=== PATIENT | male | born 1950 | race Caucasian/White ===

== ENCOUNTER 2023-10-27 04:34 | Inpatient (IN) | payer MEDICARE, BC, SELFPAY ==
[2023-10-27] VITALS (14 sets, daily range): BP systolic 111–144; BP diastolic 66–81; BMI 24.3; BMI 23.9
--- NOTE | 2023-10-27 02:52 | ED.GENMED ---
History of Present Illness
General
Chief Complaint: Back Pain
Source: patient and ambulance crew
Time Seen by Provider: 10/27/23 02:51
Travel History
Have you had any contact with someone who has COVID-19?: No
Do you have any symptoms of coronavirus? Fever > 100 degrees, chills, cough, shortness of breath, sore throat, loss of taste or smell, muscle aches, or headache?: No
History of Present Illness
History of Present Illness:
73-year-old male brought in by EMS for back pain that began around 9 PM. Patient states that the pain was severe and started to vomit. He took 324 mg of aspirin and called 911. Patient has a history of chronic back pain but states that this is
different. Patient has had strokes and is on Eliquis. He took a dose this morning but missed this evening's dose. He states that he occasionally misses but has not missed a dose in a while.
Past History
Past History
ED Past Medical History: Arrthythmia (Atrial fibrillation), CVA, GERD, HTN, Hypercholesterolemia and Other (Obstructive sleep apnea, glaucoma, prostate cancer)
ED Past Surgical History: None, Urological (Prostatectomy October 2013) and Other (Cataract removal with lens implant 2019)
Social History
Tobacco: Non-smoker
Alcohol: None
Drug: None
Personal:
Living: with family
Employment: Retired
Family History
Family History: Other
Review of Systems
Review of Systems
Allergies reviewed?: Yes
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
All Other Systems: ROS reviewed and negative except as documented in HPI and ROS
Constitutional: Reports fatigue
Respiratory: Reports no symptoms; Denies cough or trouble breathing
Cardiac: Reports diaphoresis; Denies chest pain
Musculoskeletal: Reports back pain (Between shoulder blades)
Skin: Reports no symptoms
Neurological: Reports no symptoms
Endocrine: Reports no symptoms
Hematologic/Lymphatic: Reports no symptoms
Psychiatric: Reports no symptoms
Phy Exam
General Physical Exam
General Presentation: moderate distress
General Skin: warm and dry
General Habitus: normal
General Mental: anxious and verbally abusive
General Hydration: appears well hydrated
ENT Exam
ENT Exam: EOMI, pharynx normal, neck supple and normocephalic
Eye Exam
Eye Exam: PERRL, cornea clear and conjunctiva normal
Cardiovascular Exam
Cardiovascular Exam: regular rate/rhythm, no edema, no murmur and normal peripheral pulses
Pulmonary Exam
Pulmonary Exam: lungs clear, no respiratory distress, no rales, no crackles, no rhonchi, no stridor, no wheezing and no cough
Gastrointestinal Exam
Gastrointestinal Exam: normal bowel sounds, non tender, soft, no organomegaly, no pulsatile mass and non distended
Neurological Exam
Neurological Exam: alert, oriented x3, no motor deficits and speech normal
Musculoskeletal Exam
Musculoskeletal Exam: full ROM and no edema
Skin Exam
Skin Exam: normal color, warm/dry, no rash and no petechia
Psychiatric Exam
Psychiatric Exam: normal mood/affect
Course
Orders/Labs/Results
Orders:
Orders
10/27/23 02:43
EKG [Electrocardiogram (*1)] Urgent
Reason for Study: Chest Pain
EKG- Treatment ONCE
CR Chest Portable - 1 View Urgent
Comment:
Reason For Exam: chest pain
Reason Study Needs to be Portable: Unable to Transport
10/27/23 02:44
Cardiac Monitoring- Treatment ONCE
IV Insert/Care/Rem.- Treatment PRN
O2 Therapy [RESP] Urgent
Titrate/Wean O2 to maintain O2 sat greater than (%): 90
Special Instructions: Maintain sats >/=90%
Pulse Ox/spot Check [RESP] Urgent
Quantity: 1
Special Instructions: ON ROOM AIR
10/27/23 02:52
Complete Blood Count/With Diff Urgent
Comprehensive Metabolic Panel Urgent
Prothrombin Time Urgent
Troponin I Urgent
10/27/23 03:00
Heparin 10,000 units .ROUTE .STK-MED ONE
Heparin Sodium,Porcine/Ns/Pf [Heparin 2000 Units/1000 ml] 2,000 unit in 1,000 ml .ROUTE .STK-MED
Lidocaine HCl/Pf [Xylocaine-Mpf 1% Vial] 100 mg .ROUTE .STK-MED ONE
Nitroglycerin [Tridil] 1,500 mcg .ROUTE .STK-MED ONE
Verapamil Injectable [Isoptin/Verapamil Injection] 5 mg .ROUTE .STK-MED ONE
10/27/23 03:04
Fentanyl Citrate/Pf [Sublimaze] 100 mcg .ROUTE .STK-MED ONE
Midazolam HCl [Versed] 2 mg .ROUTE .STK-MED ONE
10/27/23 03:15
Ticagrelor [Brilinta] 180 mg .ROUTE .STK-MED ONE
10/27/23 04:03
Ondansetron Injectable [Zofran] 4 mg .ROUTE .STK-MED ONE
Abnormal Lab Results
10/27/23 10/27/23 10/27/23
02:52 03:21 03:31
WBC 12.6 H 10^3/uL
(4.8-10.8)
RBC 4.31 L 10^6/uL
(4.70-6.10)
Hct 37.2 L %
(39.0-52.0)
MCH 31.8 H pg
(27.0-31.0)
Abs Immat Gran (auto) 0.1 H 10^3/uL
(0-0.05)
Absolute Neuts (auto) 10.5 H 10^3/uL
(1.4-6.5)
Neutrophils % 82.9 H %
(42.2-75.2)
Lymphocytes % 13.2 L %
(20.5-51.1)
BUN 36 H mg/dl
(9-20)
Creatinine 1.5 H mg/dL
(0.7-1.3)
Glucose 210 H mg/dl
(70-99)
Alkaline Phosphatase 167 H U/L
(38-126)
Troponin I 3.000 H* ng/ml
POC ACT Low Range 197 H Seconds 308 H Seconds
(116-155) (116-155)
10/27/23
04:13
WBC
RBC
Hct
MCH
Abs Immat Gran (auto)
Absolute Neuts (auto)
Neutrophils %
Lymphocytes %
BUN
Creatinine
Glucose
Alkaline Phosphatase
Troponin I
POC ACT Low Range 274 H Seconds
(116-155)
10/27/23 02:52
10/27/23 02:52
Vital Signs
Initial and Last Documented VS:
Initial Vital Signs
Temp Pulse Resp Pulse Ox
98.4 F 72 23 100
10/27/23 02:45 10/27/23 02:45 10/27/23 02:45 10/27/23 02:45
Last Documented Vital Signs
Temp Pulse Resp BP Pulse Ox
98.4 F 72 23 144/78 100
10/27/23 02:45 10/27/23 02:45 10/27/23 02:45 10/27/23 02:53 10/27/23 02:45
MDM/Problems Addressed
Differential Diagnosis Includes:
73-year-old male with back pain and diaphoresis. He had an episode of vomiting. I consider this an anginal equivalent. Differential diagnosis includes ACS, AAA, STEMI, musculoskeletal back pain
Chronic conditions affecting care:
Back pain, CVA, TIA, sleep apnea hypertension, hyperlipidemia, Linq implant
Chronic conditions affecting care: HTN and Neurological disorder
*Pulse Oximetry
Patient hypoxic: yes
*EKG
Interpreted by ED Provider?: Yes
EKG Intrepretation Date: 10/27/23
Interpretation: abnormal
Heart Rate: 71
Rate: normal
Rhythm: sinus arrhythmia
[place]: left axis deviation
Interval: normal interval
QRS Pattern: left bundle branch block (Incomplete)
Ischemia: ST depression
*Kieselguhr Regenerator Operator Interpretation
Rate: normal
Interpretation: normal
Heart Rate: 88
Rhythm: sinus
*Critical Care Note
Total Time (30-74mins, 75-104mins- exclusive of procedures): 35
comment:
Critical care statement: A total of 35 minutes of critical care time was provided for this patient. This time is separate from time utilized to perform the aforementioned documented procedures. Aggregate critical care time includes only time
during which I was engaged in work directly related to the patient's care, as described above, whether at the bedside or elsewhere in the Emergency Department.
Data Reviewed
Review of Other/Old Records Reveals: Labs (Troponin 3.0)
Source: patient and ambulance crew
Patient Management
Social determinants of health affecting care: Strong social support
Discussion with other providers: Tile Molder Hand
Update Note
Update Note:
Spoke with who is aware of situation. is currently in [employer] Coordinator. She will have to come in the morning. She is unable to drive due to disability
ED Attending Note
-
Portions of this chart may have been created with voice recognition software.� Occasional wrong word or��sound alike� substitutions may have occurred due to the inherent limitations of voice recognition software.
Discharge Plan
Departure
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
Date of Disposition: 10/27/23
Time of Disposition: 02:31
Presentation/result/management discussed w/ accepting MD/DO: Dr. Guzman
Condition: Serious
Discharge Problem:
ST elevation (STEMI) myocardial infarction, Back pain
Prescriptions:
No Action
losartan 50 MG tablet
100 mg PO HS
atorvastatin 80 MG tablet
80 mg PO HS
citalopram 20 MG tablet
20 mg PO DAILY
modafinil 200 MG tablet
100 mg PO DAILY
bupropion HCl 300 MG tablet extended release 24 hr
300 mg PO DAILY
ezetimibe 10 MG tablet
10 mg PO HS
bimatoprost [Lumigan] 1 DROP drops
1 drp BOTH EYES HS
evolocumab [Repatha Syringe] 140 MG/ML syringe
140 mg SC Q2W Qty: 0
clopidogrel 75 MG tablet
75 mg PO DAILY Qty: 30 0RF
Patient Comments:
patient was told to stop taking this drug
aspirin 81 MG tablet,delayed release (DR/EC)
81 mg PO DAILY Qty: 21 0RF
lisinopril 20 MG tablet
20 mg PO DAILY
amlodipine 10 MG tablet
10 mg PO HS
diphenhydramine HCl [Banophen] 25 MG capsule
25 mg PO Q6HPRN PRN (Reason: allergies)
Patient Comments:
patients states its been weeks since last taken
zinc gluconate 50 MG tablet
50 mg PO DAILY
hydrochlorothiazide 25 MG tablet
25 mg PO DAILY
ergocalciferol (vitamin D2) 50,000 UNITS capsule
50,000 units PO WEEKLY
ipratropium bromide 1 SPRAY spray,non-aerosol
1 spray intranasal DAILYPRN PRN (Reason: allergies)
Patient Comments:
patient states its been weeks since last taken
beclomethasone dipropionate [Qvar] 8.7 GM aerosol
2 puff IH BIDPRN PRN (Reason: chronic cough)
Patient Comments:
patient states its been a long time since last taken
atenolol 50 MG tablet
50 mg PO HS
apixaban [Eliquis] 5 MG tablet
5 mg PO BID
Referrals:
PRIVATE,PHYSICIAN [Family Provider] -
Interventions
Interventions:
*Risk Screen - Suicide Last Done: 10/27/23 02:48
*General Assessment Last Done: 10/27/23 02:47
*Neglect/Abuse Screening Last Done: 10/27/23 02:48
ED- Fall Risk Assessment Last Done: 10/27/23 02:48
*ED COVID-19 Vaccine History Last Done: 10/27/23 02:46
*Nursing Disposition Last Done: 10/27/23 03:18
ED-Musculoskeletal Assessment Last Done: 10/27/23 02:49
Discharge Date and Time
Discharge Date/Time: 10/27/23 03:20
[2023-10-27 03:23] LABS: ALT (SGPT) 23 U/L (0-50); AST (SGOT) 56 U/L (17-59); Albumin 4.6 g/dl (3.5-5.0); Alkaline Phosphatase 167 U/L (38-126); Blood Urea Nitrogen 36 mg/dl (9-20); Calcium 10.2 mg/dl (8.4-10.2); Carbon Dioxide 24 mmol/L (22-30); Chloride 101 mmol/L (98-107); Estimated Creatinine Clearance 47 ml/min; Glucose 210 mg/dl (70-99); Potassium 3.5 mmol/L (3.5-5.1); Sodium 141 mmol/L (135-145); Total Bilirubin 0.7 mg/dl (0.2-1.3); Total Protein 7.4 g/dl (6.3-8.2); eGFR 49.16
[2023-10-27 03:27] LABS: % Basophils 0.2 % (0-2); % Immature Granulocytes 0.4 % (0-0.5); % Lymphocytes 13.2 % (20.5-51.1); % Monocytes 3.3 % (1.7-9.3); % Neutrophils 82.9 % (42.2-75.2); Absolute Immature Granulocytes 0.1 10^3/uL (0-0.05); Absolute Lymphocytes 1.7 10^3/uL (1.2-3.4); Absolute Monocytes 0.4 10^3/uL (0.1-0.6); Absolute Neutrophils 10.5 10^3/uL (1.4-6.5); Hematocrit 37.2 % (39.0-52.0); Hemoglobin 13.7 g/dL (13.0-18.0); Mean Corp Hgb Conc. 36.8 g/dL (33.0-37.0); Mean Corpuscular Hgb 31.8 pg (27.0-31.0); Mean Corpuscular Volume 86.3 fL (80.0-94.0); Mean Platelet Volume 10.4 fL (7.4-10.4); Nucleated Red Blood Cells % 0 % (-); Platelet Count 190 10^3/uL (130-400); Red Blood Cell Count 4.31 10^6/uL (4.70-6.10); Red Cell Dist. Width 11.9 % (11.5-14.5); White Blood Cell Count 12.6 10^3/uL (4.8-10.8)
[2023-10-27 03:28] LABS: ACT-LR - POC 197 Seconds (116-155)
[2023-10-27 03:30] LABS: INR 0.99; PT 13.1 Sec (11.4-14.6)
[2023-10-27 03:36] LABS: ACT-LR - POC 308 Seconds (116-155)
[2023-10-27 04:18] LABS: ACT-LR - POC 274 Seconds (116-155)
--- NOTE | 2023-10-27 04:56 | ITS.CL.CATH ---
Margarine Maker - Catheterization
Cardiac Catheterization
Procedure Report:
LEFT HEART CATH AND CORONARY INTERVENTION
Date of Procedure: October 27, 2023
Referring: [facility] Emergency Department
PROCEDURES:
1. Left heart catheterization with coronary and single-plane left ventriculography
2. Stenting of bifurcating first diagonal branch with a 2.0 x 15 mm Matt stent that was implanted at nominal pressures and postdilated with a 2.0 mm noncompliant balloon
INDICATION: This is a 73-year-old gentleman with a prior history of recurring TIA/CVAs. He is now chronically maintained on oral anticoagulation with apixaban. He has a Linq monitor in place with no evidence of atrial fibrillation and has
undergone an extensive evaluation including JUANA with no obvious intracardiac shunting and mild to moderate aortic atheroma noted. He has difficult to control hypertension and mixed hyperlipidemia for which she is on 80 mg of atorvastatin,
ezetimibe, and Repatha. He is on Provigil.
He presented to [facility] emergency department approximately 5 hours after the onset of severe back discomfort with associated nausea and vomiting. He 911 was called and his prehospital electrocardiogram was concerning for ST elevation in
leads I and aVL for which a prehospital STEMI alert was activated. Upon arrival the patient was still experiencing severe back discomfort but his electrocardiogram was now only notable for 0.5-[address] elevation in leads I and aVL. However, in the
setting of ongoing chest discomfort the decision was made to refer directly for coronary angiography.
ACCESS: Right radial artery, 6 Hungarian sheath
HEMODYNAMICS (mmHg):
AO (s/d, m) : 158/78
LV (s/d) : 154/27
LVEDP : 36
CORONARY FINDINGS
Dominance: Left
LEFT MAIN: Normal
LEFT ANTERIOR DESCENDING: The LAD arises normally from the left main and runs in the anterior interventricular groove. There is a long segment area of atherosclerosis from the proximal to mid LAD where 50-60% stenosis is noted. The mid LAD at the
origin of the first diagonal branch is aneurysmal and the diagonal is found to be 100% occluded. The mid to distal LAD has only minor irregularities in the LAD wraps completely around the apex.
CIRCUMFLEX: The circumflex is a moderate to large caliber dominant vessel. OM1 is small. OM 2 is a small to medium caliber vessel that bifurcates proximally and has minor irregularities. The circumflex then continues in the AV groove where
diffuse minor luminal irregularities are noted. The PDA is small with the distal circumflex supplying several small posterolateral branches.
RIGHT CORONARY: Small nondominant
VENTRICULOGRAPHY: Left ventriculography was performed in an POSADA projection. The digital single-plane left ventricular ejection fraction is estimated at 45% with a large area of anterolateral hypokinesis noted.
ANGIOPLASTY PROCEDURE DETAIL: Upon review of the diagnostic catheterization films the decision was made to proceed with percutaneous revascularization of the 100% occluded diagonal branch. A long BMW wire was advanced to the apical LAD. A short
BMW wire crossed the occluded segment in the diagonal branch with a moderate degree of difficulty and was advanced to the distal vessel. Balloon predilation of the diagonal branch was performed using a 2.0 mm balloon. Antegrade flow was restored
into the diagonal branch which was now angiographically noted to have a very proximal bifurcation. A power turn flex was then advanced to the diagonal branch and to the larger daughter branch beyond the bifurcation. A 2.0 x 15 mm Matt stent was
then positioned with angiographic and fluoroscopic guidance. The stent was implanted in the proximal portion of the diagonal branch and the stent was postdilated with a 2.0 mm noncompliant balloon.
RADIATION SUMMARY: Fluoro Time (min): 14.8, Dose (mGy): 1198, DAP (Gy.cm2) : 122
CONCLUSIONS
1. Evolving anterolateral wall myocardial infarction with 100% occlusion of bifurcating diagonal branch. Successful stenting with a 2.0 x 15 mm [place] stent that was implanted and postdilated with a 2 mm noncompliant balloon
2. Moderate atherosclerotic disease noted in the proximal to mid LAD
RECOMMENDATIONS
1. Serial troponin
2. Aspirin, ticagrelor (with transition to clopidogrel), and apixaban for 2 weeks followed by clopidogrel and apixaban
Copy to: Dr. Kulwant Coates
--- NOTE | 2023-10-27 05:00 | PTCARENOTE ---
received patient from the laboratory mechanic helper. AAOx3. denies any cp. c/o 4/10 L back pain-improved per patient. HR SR 60s. bp 131/69. R radial band intact, + pulse. reviewed plan of care with patient and verbalized understanding. answered all questions. call
chapman within reach.
[2023-10-27 05:36] LABS: Hematocrit 33.5 % (39.0-52.0); Hemoglobin 12.1 g/dL (13.0-18.0); Mean Corp Hgb Conc. 36.1 g/dL (33.0-37.0); Mean Corpuscular Hgb 31.8 pg (27.0-31.0); Mean Corpuscular Volume 87.9 fL (80.0-94.0); Mean Platelet Volume 10.4 fL (7.4-10.4); Platelet Count 174 10^3/uL (130-400); Red Blood Cell Count 3.81 10^6/uL (4.70-6.10); Red Cell Dist. Width 11.9 % (11.5-14.5); White Blood Cell Count 10.1 10^3/uL (4.8-10.8)
[2023-10-27 07:02] LABS: Blood Urea Nitrogen 32 mg/dl (9-20); Carbon Dioxide 22 mmol/L (22-30); Chloride 105 mmol/L (98-107); Estimated Creatinine Clearance 55 ml/min; Glucose 197 mg/dl (70-99); HDL Cholesterol 49 mg/dl; Potassium 3.7 mmol/L (3.5-5.1); Total Cholesterol 107 mg/dl (50-199); eGFR 58.37
[2023-10-27 07:37] LABS: Calcium 9.2 mg/dl (8.4-10.2); LDL Cholesterol, Calculated 49 mg/dl; Sodium 136 mmol/L (135-145); Triglyceride 45 mg/dl (10-149); Very Low Density Lipoprotein 9 mg/dl (0-30)
[2023-10-27 07:43] LABS: ACT-LR - POC > 397 Seconds (116-155)
--- NOTE | 2023-10-27 08:12 | PTCARENOTE ---
Patient received from nightshift nurse. Patient is alert and oriented x4, pleasant. Patient c/o 4/10 back pain, refuses any PRN pain medication. NSR. HR 70s. Audible heart tones. BP 127/71. Palpable pulses. No edema. PIV x2 maintained. RA. Oxygen
saturation 95%. Upon auscultation, lung sounds clear. Hypoactive BS. Voids in urinal. Standby assist OOB. Skin intact. R wrist puncture site was oozy with TR band. Going slower with decreasing air out of TR band. Will continue to monitor.
[2023-10-27] MEDS: ZETIA 10 MG PO (08:45)
[2023-10-27] MEDS: TOPROL XL 50 MG PO (08:45)
[2023-10-27] MEDS: WELLBUTRIN XL (24 hour extended release) 150 MG PO (08:45)
[2023-10-27] MEDS: LOW STRENGTH ASPIRIN 81 MG PO (08:45)
[2023-10-27] MEDS: BRILINTA 90 MG PO ×2 (08:45→19:37)
[2023-10-27] MEDS: PROTONIX 40 MG PO (08:45)
[2023-10-27] MEDS: CELEXA 20 MG PO (08:45)
--- NOTE | 2023-10-27 10:05 | W.PN.CARDCBS ---
Addendum entered and electronically signed by Celeste Gomez DO 10/27/23 11:02:
Patient seen and examined with Artist And Repertoire Manager nurse practitioner. Please see independent note.
Original Note:
Today's Communication / Plan
-
continue post PR care
trend troponin
Echo today
DM educator c/s for A1c 7%
triple therapy ASA/Eliquis/Brilinta transition to Plavix in am
Impression / Plan
-
PCP: Rupert Hanson MD
CDY: Kulwant Coates MD
73-year-old gentleman with a prior history of recurring TIA/CVAs.� He is now chronically maintained on oral anticoagulation with apixaban.� He has a Linq monitor in place with no evidence of atrial fibrillation and has undergone an extensive
evaluation including JUANA with no obvious intracardiac shunting and mild to moderate aortic atheroma noted.� He has difficult to control hypertension and mixed hyperlipidemia for which she is on 80 mg of atorvastatin, ezetimibe, and Repatha.� He is
on Provigil.
Impression:
Lateral STEMI
post PCI first diagonal x1 PERRI 10/27/23
Residual LAD stenosis med treated
TIA/CVA 02/2021, recurrent 07/2021
Linq placed 06/21/21 - No Afib seen
HTN
HLD
CKD3a
ADRIAN undergoing eval for Inspire
Prostate cancer
GERD/Hobbs esophagus
10/27/23 [facility]:
1.� Left heart catheterization with coronary and single-plane left ventriculography
2.� Stenting of bifurcating first diagonal branch with a 2.0 x 15 mm Matt stent that was implanted at nominal pressures and postdilated with a 2.0 mm noncompliant balloon
Plan:
post PCI still with 3/10 back pain (never had chest pain)
Rad site with TR band no HT, bleeding
tele no sig ectopy
serial troponin to peak, 136 this am
Echo today
He is on chronic Eliquis continue with addition of DAPT ASA/Plavix for 2 weeks then stop ASA
continue losartan and Toprol
Lipids good continue atorvastatin, Repatha and Zetia
Hbg A1c 7.0, was borderline 6.6% in 2020, will c/s DM educator
Cardiac rehab c/s
f/u DCA at d/c
continue to monitor 48 hours post PR
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
Subjective
Date of Service: October 27, 2023
no cp, sob, 12/02 back pain
Objective
Labs:
10/27/23 05:12
10/27/23 05:12
Labs
Hgb 12.1 g/dL (13.0-18.0) L 10/27/23 05:12
Hct 33.5 % (39.0-52.0) L 10/27/23 05:12
Plt Count 174 10^3/uL (130-400) 10/27/23 05:12
PT 13.1 Sec (11.4-14.6) 10/27/23 02:52
INR 0.99 10/27/23 02:52
Sodium 136 mmol/L (135-145) 10/27/23 05:12
Potassium 3.7 mmol/L (3.5-5.1) 10/27/23 05:12
BUN 32 mg/dl (9-20) H 10/27/23 05:12
Creatinine 1.3 mg/dL (0.7-1.3) 10/27/23 05:12
Glucose 197 mg/dl (70-99) H 10/27/23 05:12
Troponins
10/27/23 10/27/23
02:52 05:12
Troponin I 3.000 H* 136.000 H* D
Vital Signs and I&O:
Vital Signs
Temp Pulse Resp BP Pulse Ox
98.9 F 75 20 127/71 95
10/27/23 08:04 10/27/23 09:00 10/27/23 08:04 10/27/23 08:45 10/27/23 08:04
Vital Signs
Temp Pulse Resp BP Pulse Ox
98.9 F 75 20 127/71 95
10/27/23 08:04 10/27/23 09:00 10/27/23 08:04 10/27/23 08:45 10/27/23 08:04
Intake & Output
10/25/23 10/26/23 10/27/23 10/28/23
06:59 06:59 06:59 06:59
Intake Total 750 / 750 480 / 480
Output Total 600 / 600
Balance 150 / 150 480 / 480
Physical Exam
Physical Exam
NAD< AOX3
S1, S2, RRR
CTAB, non labored
SNTND bsx4
R rad site with TR band intact, no HT
--- NOTE | 2023-10-27 11:01 | CM ---
Addendum entered by Johanne Myers 10/27/23 14:46:
Met with Mr. Levine to review co-pay of $40.00 a month for Jardiance. He is agreeable to the co-pay.
Addendum entered by Johanne Myers 10/27/23 11:44:
Asked to check co-pay for Jardiance 10 mg po daily. Telephone call to [employer],([phone]) to check on co-pay. His co-pay would be $40.00 a month. Placed the free 14 day coupon in his red discharge folder.
Original Note:
Reviewed chart, Met with Mr. Levine to review discharge plans. He states prior to admission he resides with his spouse and son in a two story home with two steps to enter. He states he has a full flight of steps to get to bedroom/full bathroom.
He has a powder room on the first floor. He states prior to admission he was independent with ambulation and adls. He states he has a stair glide to get to the second floor if needed. He states he has a prescription plan and uses [facility]. Medical work-up in progress. The discharge plan is to return home with his spouse and son when medically stable.
--- NOTE | 2023-10-27 11:02 | W.PN.CARDCBS ---
Addendum entered and electronically signed by Celeste Gomez DO 10/27/23 17:46:
Correction to medical history: Patient has a history of recurrent strokes but has had no documented atrial fibrillation including through Linq monitor placed June 21, 2021. He had a consultation with Dr. Alice Guillen October 12, 2021 with visit
summary recommending to stop aspirin and Plavix and start Eliquis for history of recurrent CVAs felt to be due to bilateral embolism of carotid arteries.
Original Note:
Today's Communication / Plan
-
Supportive post STEMI care and telemetry monitoring
Optimize medical therapy we will continue
Trend troponin
2D echocardiogram today
Cardiac rehab consult
Impression / Plan
-
PCP: Rupert Hanson MD
CDY: Kulwant Coates MD
73-year-old gentleman with a prior history of recurring TIA/CVAs.� He is now chronically maintained on oral anticoagulation with apixaban.� He has a Linq monitor in place with no evidence of atrial fibrillation and has undergone an extensive
evaluation including JUANA with no obvious intracardiac shunting and mild to moderate aortic atheroma noted.� He has difficult to control hypertension and mixed hyperlipidemia for which she is on 80 mg of atorvastatin, ezetimibe, and Repatha.� He is
on Provigil.
Impression:
Lateral STEMI
post PCI first diagonal x1 PERRI 10/27/23
Residual LAD stenosis med treated
TIA/CVA 02/2021, recurrent 07/2021
Linq placed 06/21/21 - No Afib seen
HTN
HLD
CKD3a
ADRIAN undergoing eval for Inspire
Prostate cancer
GERD/Hobbs esophagus
10/27/23 [facility]:
1.� Left heart catheterization with coronary and single-plane left ventriculography
2.� Stenting of bifurcating first diagonal branch with a 2.0 x 15 mm Matt stent that was implanted at nominal pressures and postdilated with a 2.0 mm noncompliant balloon
3. The LAD arises normally from the left main and runs in the anterior interventricular groove.� There is a long segment area of atherosclerosis from the proximal to mid LAD where 50-60% stenosis is noted.� The mid LAD at the origin of the first
diagonal branch is aneurysmal and the diagonal is found to be 100% occluded.� The mid to distal LAD has only minor irregularities in the LAD wraps completely around the apex.
4.CIRCUMFLEX: The circumflex is a moderate to large caliber dominant vessel.� OM1 is small.� OM 2 is a small to medium caliber vessel that bifurcates proximally and has minor irregularities.� The circumflex then continues in the AV groove where
diffuse minor luminal irregularities are noted.� The PDA is small with the distal circumflex supplying several small posterolateral branches.
5.RIGHT CORONARY: Small nondominant
10/27/2023 Portable chest x-ray: Lungs clear. No acute cardiopulmonary process.
Plan:
Late presenting latreal STEMI with initial troponin 3
-Patient reports no chest pain or pressure but had back pain which was persistent from 9 PM until he presented to the ER around 2:40 AM.
-Cardiac catheterization reviewed with patient: Stenting of bifurcating first diagonal branch with 2X 15 mm [place] stent. Residual LAD disease with plan for medical treatment.
-post PCI still with 3/10 back pain (never had chest pain)
-Rad site with TR band no HT, bleeding
-tele no sig ectopy
-serial troponin to peak, 136 this am
-Echo today
-Repeat EKG
-He is on chronic Eliquis for PAF; continue with addition of DAPT ASA/Plavix for 2 weeks then stop ASA
-continue losartan and Toprol
-Lipids good continue atorvastatin, Repatha and Zetia
-Case management consult to evaluate for Jardiance 10 mg 1 p.o. daily
-Hbg A1c 7.0, was borderline 6.6% in 2020, will c/s DM educator
-Cardiac rehab c/s
-Supportive post NH care. Continue to monitor 48 hours post NH
Paroxysmal atrial fibrillation currently in sinus rhythm; history of recurrent strokes in 2020
-Continue anticoagulation. Continue beta-maria antonia
-Patient has a Linq monitor placed 06/21/2021.
Obstructive sleep apnea undergoing evaluation for inspire at [place]
-Patient will notify his sleep medicine physicians at [place] about recent STEMI
-Ideally avoid interruption of dual antiplatelet therapy for at least 1 year
-Will cancel upcoming procedures; timing will be determined at outpatient follow-up
History of GERD/Hobbs's esophagus, currently asymptomatic. Follow hemoglobin on triple therapy
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
Subjective
Date of Service: October 27, 2023
Seen and examined. Patient with slight back pain but denies chest pain/arm pain or jaw pain. No shortness of breath.
Objective
Labs:
10/27/23 05:12
10/27/23 05:12
Labs
Hgb 12.1 g/dL (13.0-18.0) L 10/27/23 05:12
Hct 33.5 % (39.0-52.0) L 10/27/23 05:12
Plt Count 174 10^3/uL (130-400) 10/27/23 05:12
PT 13.1 Sec (11.4-14.6) 10/27/23 02:52
INR 0.99 10/27/23 02:52
Sodium 136 mmol/L (135-145) 10/27/23 05:12
Potassium 3.7 mmol/L (3.5-5.1) 10/27/23 05:12
BUN 32 mg/dl (9-20) H 10/27/23 05:12
Creatinine 1.3 mg/dL (0.7-1.3) 10/27/23 05:12
Glucose 197 mg/dl (70-99) H 10/27/23 05:12
Troponins
10/27/23 10/27/23
02:52 05:12
Troponin I 3.000 H* 136.000 H* D
Vital Signs and I&O:
Vital Signs
Temp Pulse Resp BP Pulse Ox
98.9 F 66 20 127/71 95
10/27/23 08:04 10/27/23 10:00 10/27/23 08:04 10/27/23 08:45 10/27/23 08:04
Vital Signs
Temp Pulse Resp BP Pulse Ox
98.9 F 66 20 127/71 95
10/27/23 08:04 10/27/23 10:00 10/27/23 08:04 10/27/23 08:45 10/27/23 08:04
Intake & Output
10/25/23 10/26/23 10/27/23 10/28/23
06:59 06:59 06:59 06:59
Intake Total 750 / 750 480 / 480
Output Total 600 / 600
Balance 150 / 150 480 / 480
Physical Exam
Physical Exam
General: No acute distress, AAOX3
Neck: Negative JVD
Heart: Regular, positive S1/S2, No murmur
Lungs: CTA b/l, negative wheezes/rales/rhonchi
Abd: Positive BS, NT/ND, neg rebound/rigidity/guarding
Ext: No edema. Right radial with compression plan following left heart catheterization.
Neuro: nonfocal
[2023-10-27] MEDS: NORVASC 5 MG PO (11:21)
[2023-10-27] MEDS: COZAAR 100 MG PO (11:22)
--- NOTE | 2023-10-27 11:45 | PTCARENOTE ---
Diabetes Education- Current A1C 7% (6.6% 07/2021). No medications or monitoring at home [employer]. Provided with and instructions given on Contour Next EZ glucometer. Good return demonstration with result of 164 mg/dl, 3 hrs pB. Aware of testing
technique, sites and expected results. Initially a bit resistant, asking for a CGM. Informed Mr. Levine to check with his PCP regarding writing an RX, we do not provide them at this time. Discussed value of testing BS to see effects of food and
medications, also discussed difference between CGM and fingerstick results. Discussed action and side effects of Jardiance/Farxiga and Metformin. He will attend [facility] and encouraged to continue exercise once program completed and cleared by
cardiology. handout on outpt DSME classes given as well as education booklet with information marked regarding testing pattern, expected results, current A1C and to have A1C rechecked in 6 months. Will need RX at discharge for test strips and
lancets for the Contour Next EZ glucometer, testing 2x/day.
--- NOTE | 2023-10-27 12:45 | PN.DE.MGMTRT ---
Insulin Management
- -
10/27/2023: Diabetes Management Consult
73 year old male admitted on 10/27 with back pain due to lateral STEMI s/p PCI with PERRI this morning.
PMH includes: Arrhythmia (Atrial fibrillation), TIA/CVA 02/2021 & 07/2021, GERD, HTN, HLD, CKD3a, ADRIAN, Glaucoma s/p removal, prostate cancer s/p Prostatectomy, GERD/Hobbs esophagus and T2DM. Current A1C 7% (6.6% 07/2021) Cr 1.3-->1.2 today.
No medications or monitoring at home [employer]CR[employer]. Pt states that he was told that his A1C was 6.6% and did not need any medications.
Plasma glucose is 197-200 with a FBG of 197 this morning, no accuchecks available at this time.
Discussed current A1C and glucose range, was made aware of need to start oral DM medications.
Discussed Jardiance/Farxiga and Metformin mech of action and side effects, he was amenable to regimen.
Will start Jardiance 10mg daily, 1st dose today. Start Metformin 500mg BID, 1st dose on 10/29 @ 0800
Start moderate corrective insulin and accucheks AC/HS. 1800 ada diet
Pt was provided with monitor and instructions for home glucose monitoring.
Diabetes History
- -
Type of Diabetes: 2
Pre-Admission Diabetes Regimen
10/27/23 10/27/23
02:52 05:12
Creatinine 1.5 H 1.3
Lab Results
Hemoglobin A1c 7.0 % (4.0-5.6) H 10/27/23 05:12
Insulin Pump Settings
IP Diabetes Regimen
10/27/23 10/27/23
02:52 05:12
Glucose 210 H 197 H
Meal type: Breakfast
Amount consumed: 75%
Patient Education
[2023-10-27] MEDS: NOVOLOG FLEXPEN-MODERATE RESISTANCE SC (16:43)
[2023-10-27 16:59] LABS: Glucose - Point of Care 129 mg/dl (70-99)
[2023-10-27] MEDS: LIPITOR 80 MG PO (19:16)
[2023-10-27] MEDS: ELIQUIS 5 MG PO (19:37)
[2023-10-27 22:46] LABS: Glucose - Point of Care 140 mg/dl (70-99)
[2023-10-28] VITALS (8 sets, daily range): BP systolic 85–119; BP diastolic 62–72
--- NOTE | 2023-10-28 02:49 | PTCARENOTE ---
Denied any complaints of pain or discomfort earlier when questioned. Right radial cath site wnl. Sleeping at present.
[2023-10-28] MEDS: PLAVIX 600 MG PO (06:57)
--- NOTE | 2023-10-28 07:49 | W.PN.CARDCBS ---
Addendum entered and electronically signed by Chino Farley MD 10/28/23 08:59:
Patient seen and examined
Agree with PA-C note and assessment
Agree with PA-C plan
Examination:
HEENT normocephalic atraumatic
JVP 6
Cor regular
Lungs clear
Abdomen soft nontender positive bowel sounds
No extremity
Nonfocal neurologically
Alert and oriented x 3
Impression:
Presented w/ back pain 10/27/2023
Lateral STEMI
post PCI first diagonal x1 PERRI 10/27/23
Residual LAD stenosis med treatedTIA/CVA 02/2021, recurrent 07/2021
Linq placed 06/21/21 - No Afib seen
HTN
HLD
CKD3a
ADRIAN undergoing eval for Inspire
Prostate cancer
GERD/Hobbs esophagus
Echo 10/27/2023:�EF 50%, mild concentric LVH.� Anterior, lateral, inferolateral, and inferior hypokinesis.� Dilated left atrium with mild mitral regurgitation, mild pulmonary hypertension PAP 39 mmHg
10/27/23 [facility]:
1.� Left heart catheterization with coronary and single-plane left ventriculography
2.� Stenting of bifurcating first diagonal branch with a 2.0 x 15 mm Matt stent that was implanted at nominal pressures and postdilated with a 2.0 mm noncompliant balloon
3.� The LAD arises normally from the left main and runs in the anterior interventricular groove.� There is a long segment area of atherosclerosis from the proximal to mid LAD where 50-60% stenosis is noted.� The mid LAD at the origin of the first
diagonal branch is aneurysmal and the diagonal is found to be 100% occluded.� The mid to distal LAD has only minor irregularities in the LAD wraps completely around the apex.
4.CIRCUMFLEX: The circumflex is a moderate to large caliber dominant vessel.� OM1 is small.� OM 2 is a small to medium caliber vessel that bifurcates proximally and has minor irregularities.� The circumflex then continues in the AV groove where
diffuse minor luminal irregularities are noted.� The PDA is small with the distal circumflex supplying several small posterolateral branches.
5.RIGHT CORONARY: Small nondominant
10/27/2023 Portable chest x-ray: Lungs clear.� No acute cardiopulmonary process.
Plan:
Late presenting lateral STEMI with initial troponin 3, peaked at 136
-angina symptom was back pain. Significantly improved but still has very mild pain.
-Cardiac catheterization reviewed with patient: Stenting of bifurcating first diagonal branch with 2X 15 mm Matt stent on 10/27/2023. � Residual LAD disease with plan for medical treatment.
-radial access site mild ecchymosis but no pain
-tele reviewed 7 beats of NSVT in early afternoon 10/27/23 but none since. Continue Toprol
-Echo as noted above mildly reduced ejection fraction EF 50% with anterior, lateral, inferolateral and inferior hypokinesis.� Was discussed with patient.
-EKG stable in sinus rhythm with T wave abnormality in lateral leads
-He is on chronic Eliquis for PAF; continue with addition of DAPT ASA/Plavix for 2 weeks then stop ASA
-Blood pressure well-controlled.� Continue losartan and Toprol.
-Lipids 10/27/2023 TC 107, HDL 49, LDL 49, triglycerides 45.� Continue atorvastatin, Repatha and Zetia
-Hbg A1c 7.0, was borderline 6.6%� in 2020, Evaluated by DM educator.� Plan is to start metformin and Jardiance 10 mg daily.� Jardiance will cost $40 a month and patient is agreeable to pay.
-Cardiac rehab c/s
-Supportive post OR care.� Continue to monitor 48 hours post OR
History of recurrent strokes in 2020
-Continue anticoagulation.� Continue beta-maria antonia
-Patient has a Linq monitor placed 06/21/2021.� There has been no documented atrial fibrillation on Linq since implant.
Obstructive sleep apnea undergoing evaluation for inspire at [place]
-Patient will notify his sleep medicine physicians at [facility] about recent STEMI
-Ideally avoid interruption of dual antiplatelet therapy for at least 1 year
-Will cancel upcoming procedures; timing will be determined at outpatient follow-up
History of GERD/Hobbs's esophagus, currently asymptomatic.� Follow hemoglobin on triple therapy
Original Note:
Today's Communication / Plan
-
Labs pending
Continue to monitor on telemetry for another 24 hours
New to Jardiance, metformin 500 mg twice daily to start 10/29/2023
Triple therapy with Eliquis, Plavix and aspirin x 2 weeks then Eliquis and Plavix thereafter
Impression / Plan
-
PCP: Rupert Hanson MD
CDY: Kulwant Coates MD
Impression:
Presented w/ back pain 10/27/2023
Lateral STEMI
post PCI first diagonal x1 PERRI 10/27/23
Residual LAD stenosis med treated
TIA/CVA 02/2021, recurrent 07/2021
Linq placed 06/21/21 - No Afib seen
HTN
HLD
CKD3a
ADRIAN undergoing eval for Inspire
Prostate cancer
GERD/Hobbs esophagus
Echo 10/27/2023: EF 50%, mild concentric LVH. Anterior, lateral, inferolateral, and inferior hypokinesis. Dilated left atrium with mild mitral regurgitation, mild pulmonary hypertension PAP 39 mmHg
10/27/23 [facility]:
1.� Left heart catheterization with coronary and single-plane left ventriculography
2.� Stenting of bifurcating first diagonal branch with a 2.0 x 15 mm [place] stent that was implanted at nominal pressures and postdilated with a 2.0 mm noncompliant balloon
3. The LAD arises normally from the left main and runs in the anterior interventricular groove.� There is a long segment area of atherosclerosis from the proximal to mid LAD where 50-60% stenosis is noted.� The mid LAD at the origin of the first
diagonal branch is aneurysmal and the diagonal is found to be 100% occluded.� The mid to distal LAD has only minor irregularities in the LAD wraps completely around the apex.
4.CIRCUMFLEX: The circumflex is a moderate to large caliber dominant vessel.� OM1 is small.� OM 2 is a small to medium caliber vessel that bifurcates proximally and has minor irregularities.� The circumflex then continues in the AV groove where
diffuse minor luminal irregularities are noted.� The PDA is small with the distal circumflex supplying several small posterolateral branches.
5.RIGHT CORONARY: Small nondominant
10/27/2023 Portable chest x-ray: Lungs clear. No acute cardiopulmonary process.
Plan:
Late presenting lateral STEMI with initial troponin 3, peaked at 136
-angina symptom was back pain. Significantly improved but still has very mild pain.
-Cardiac catheterization reviewed with patient: Stenting of bifurcating first diagonal branch with 2X 15 mm Matt stent on 10/27/2023. Residual LAD disease with plan for medical treatment.
-radial access site mild ecchymosis but no pain
-tele reviewed 7 beats of NSVT in early afternoon 10/27/23 but none since. Continue Toprol
-Echo as noted above mildly reduced ejection fraction EF 50% with anterior, lateral, inferolateral and inferior hypokinesis. Was discussed with patient.
-EKG stable in sinus rhythm with T wave abnormality in lateral leads
-He is on chronic Eliquis for PAF; continue with addition of DAPT ASA/Plavix for 2 weeks then stop ASA
-Blood pressure well-controlled. Continue losartan and Toprol.
-Lipids 10/27/2023 TC 107, HDL 49, LDL 49, triglycerides 45. Continue atorvastatin, Repatha and Zetia
-Hbg A1c 7.0, was borderline 6.6% in 2020, Evaluated by DM educator. Plan is to start metformin and Jardiance 10 mg daily. Jardiance will cost $40 a month and patient is agreeable to pay.
-Cardiac rehab c/s
-Supportive post OR care. Continue to monitor 48 hours post OR
History of recurrent strokes in 2020
-Continue anticoagulation. Continue beta-maria antonia
-Patient has a Linq monitor placed 06/21/2021. There has been no documented atrial fibrillation on Linq since implant.
Obstructive sleep apnea undergoing evaluation for inspire at [facility]
-Patient will notify his sleep medicine physicians at [facility] about recent STEMI
-Ideally avoid interruption of dual antiplatelet therapy for at least 1 year
-Will cancel upcoming procedures; timing will be determined at outpatient follow-up
History of GERD/Hobbs's esophagus, currently asymptomatic. Follow hemoglobin on triple therapy
HPI 10/27/2023:
73-year-old gentleman with a prior history of recurring TIA/CVAs.� He is now chronically maintained on oral anticoagulation with apixaban.� He has a Linq monitor in place with no evidence of atrial fibrillation and has undergone an extensive
evaluation including JUANA with no obvious intracardiac shunting and mild to moderate aortic atheroma noted.� He has difficult to control hypertension and mixed hyperlipidemia for which she is on 80 mg of atorvastatin, ezetimibe, and Repatha.� He is
on Provigil.
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
Subjective
Date of Service: October 28, 2023
Patient seen and examined. Patient lying comfortably in bed. Patient reports he was able to ambulate last evening with some mild back pain. At this time pain is intermittent.
Objective
Labs:
10/27/23 05:12
10/27/23 05:12
Labs
Hgb 12.1 g/dL (13.0-18.0) L 10/27/23 05:12
Hct 33.5 % (39.0-52.0) L 10/27/23 05:12
Plt Count 174 10^3/uL (130-400) 10/27/23 05:12
PT 13.1 Sec (11.4-14.6) 10/27/23 02:52
INR 0.99 10/27/23 02:52
Sodium 136 mmol/L (135-145) 10/27/23 05:12
Potassium 3.7 mmol/L (3.5-5.1) 10/27/23 05:12
BUN 32 mg/dl (9-20) H 10/27/23 05:12
Creatinine 1.3 mg/dL (0.7-1.3) 10/27/23 05:12
Glucose 197 mg/dl (70-99) H 10/27/23 05:12
Troponins
10/27/23 10/27/23 10/27/23
02:52 05:12 11:40
Troponin I 3.000 H* 136.000 H* D 140.000 H*
10/27/23
16:27
Troponin I 97.500 H* D
Vital Signs and I&O:
Vital Signs
Temp Pulse Resp BP Pulse Ox
99 F 66 18 101/69 99
10/28/23 05:08 10/28/23 06:00 10/28/23 05:08 10/28/23 05:10 10/28/23 05:08
Vital Signs
Temp Pulse Resp BP Pulse Ox
99 F 66 18 101/69 99
10/28/23 05:08 10/28/23 06:00 10/28/23 05:08 10/28/23 05:10 10/28/23 05:08
Intake & Output
10/26/23 10/27/23 10/28/23 10/29/23
06:59 06:59 06:59 06:59
Intake Total 750 / 750 1200 / 1200
Output Total 600 / 600
Balance 150 / 150 1200 / 1200
Physical Exam
Physical Exam
GEN: No distress, awake, Ox3
HEENT: supple, anicteric, mmm
LUNGS: CTA, no wheezes/rales
CV: Reg, S1/S2, no murmur, rub or gallop
ABD: soft, BS+, NT/ND
EXT: No edema, clubbing or cyanosis; right radial access site clean dry intact with mild ecchymosis. +2 radial and ulnar pulses
NEURO: Gross non-focal
SKIN: No rash, warm, dry, pink
[2023-10-28 08:44] LABS: Glucose - Point of Care 140 mg/dl (70-99)
[2023-10-28] MEDS: LOW STRENGTH ASPIRIN 81 MG PO (08:59)
[2023-10-28] MEDS: ZETIA 10 MG PO (08:59)
[2023-10-28] MEDS: WELLBUTRIN XL (24 hour extended release) 150 MG PO (08:59)
[2023-10-28] MEDS: ELIQUIS 5 MG PO ×2 (08:59→20:20)
[2023-10-28] MEDS: NORVASC 5 MG PO (08:59)
[2023-10-28] MEDS: CELEXA 20 MG PO (09:01)
[2023-10-28] MEDS: PROTONIX 40 MG PO (09:01)
[2023-10-28] MEDS: JARDIANCE 10 MG PO (09:01)
[2023-10-28] MEDS: COZAAR 100 MG PO (09:01)
[2023-10-28] MEDS: NOVOLOG FLEXPEN-MODERATE RESISTANCE SC ×3 (09:02→17:52)
[2023-10-28] MEDS: TOPROL XL 50 MG PO (09:05)
[2023-10-28 09:07] LABS: Hematocrit 36.7 % (39.0-52.0); Hemoglobin 12.6 g/dL (13.0-18.0); Mean Corp Hgb Conc. 34.3 g/dL (33.0-37.0); Mean Corpuscular Hgb 31.4 pg (27.0-31.0); Mean Corpuscular Volume 91.5 fL (80.0-94.0); Mean Platelet Volume 10.5 fL (7.4-10.4); Platelet Count 161 10^3/uL (130-400); Red Blood Cell Count 4.01 10^6/uL (4.70-6.10); Red Cell Dist. Width 12.1 % (11.5-14.5); White Blood Cell Count 8.5 10^3/uL (4.8-10.8)
[2023-10-28 09:30] LABS: Blood Urea Nitrogen 22 mg/dl (9-20); Carbon Dioxide 28 mmol/L (22-30); Chloride 102 mmol/L (98-107); Estimated Creatinine Clearance 51 ml/min; Glucose 153 mg/dl (70-99); Potassium 4.1 mmol/L (3.5-5.1); Sodium 135 mmol/L (135-145)
[2023-10-28 12:44] LABS: Glucose - Point of Care 109 mg/dl (70-99)
--- NOTE | 2023-10-28 14:05 | PTCARENOTE ---
10/28/23 1400 Received pt from ER via stretcher. Pt transitioned to bed x1 assist without injury. Pt connected to heart monitor- Uncontrolled A Fib 120-140's, Cardizem drip infusing at 15 mg/hr. BP stable . Pt on room air @ 93%. Pt with some shortness
of breath w/activity. Pt denies any chest pain, palpitations. Pt oriented to room and surroundings. Reviewed plan of care with patient and family. Support given and questions were answered. Will continue to monitor patient throughout shift
[2023-10-28] MEDS: LIPITOR 80 MG PO (17:52)
[2023-10-28 17:53] LABS: Glucose - Point of Care 120 mg/dl (70-99)
[2023-10-28 21:50] LABS: Glucose - Point of Care 181 mg/dl (70-99)
[2023-10-29] VITALS (9 sets, daily range): BP systolic 94–111; BP diastolic 61–71
[2023-10-29 04:36] LABS: Blood Urea Nitrogen 29 mg/dl (9-20); Calcium 8.8 mg/dl (8.4-10.2); Carbon Dioxide 28 mmol/L (22-30); Chloride 103 mmol/L (98-107); Estimated Creatinine Clearance 40 ml/min; Glucose 141 mg/dl (70-99); Potassium 4.1 mmol/L (3.5-5.1); Sodium 134 mmol/L (135-145)
--- NOTE | 2023-10-29 05:59 | PTCARENOTE ---
pt slept well. no co pain or discomfort. no acute distress noted.
[2023-10-29 07:06] LABS: Glucose - Point of Care 139 mg/dl (70-99)
--- NOTE | 2023-10-29 08:00 | PTCARENOTE ---
pt received from previous RN, oriented, in bed. SR on the monitor, HR 60s. SBP 90-100s. denies CP or SOB. palpable pulses, no edema. pt on RA, 94% POX. lungs clear. pt abdomen s/n, denies n/v. diet tolerated well. voids. R radial site c/d/i. PIV x2.
see worklist for VS, I&O, and assessment.
[2023-10-29] MEDS: NOVOLOG FLEXPEN-MODERATE RESISTANCE SC ×2 (08:25→14:14)
[2023-10-29] MEDS: PROTONIX 40 MG PO (08:41)
[2023-10-29] MEDS: JARDIANCE 10 MG PO (08:41)
[2023-10-29] MEDS: TOPROL XL 50 MG PO (08:41)
[2023-10-29] MEDS: LOW STRENGTH ASPIRIN 81 MG PO (08:41)
[2023-10-29] MEDS: ELIQUIS 5 MG PO ×2 (08:41→20:02)
[2023-10-29] MEDS: CELEXA 20 MG PO (08:41)
[2023-10-29] MEDS: ZETIA 10 MG PO (08:41)
[2023-10-29] MEDS: PLAVIX 75 MG PO (08:41)
[2023-10-29] MEDS: WELLBUTRIN XL (24 hour extended release) 150 MG PO (08:42)
--- NOTE | 2023-10-29 08:45 | W.PN.CARDCBS ---
Today's Communication / Plan
-
Creatinine noted and will check labs on October 30
Holding metformin and losartan today
Continue other cardiac meds
Continue triple therapy for post SD care and atrial arrhythmia
Will follow closely with you
Telemetry has been relatively quiet
Impression / Plan
-
PCP: Rupert Hanson MD
CDY: Kulwant Coates MD
Impression:
Presented w/ back pain 10/27/2023
Lateral STEMI
post PCI first diagonal x1 PERRI 10/27/23
Residual LAD stenosis med treated
TIA/CVA 02/2021, recurrent 07/2021
Linq placed 06/21/21 - No Afib seen
HTN
HLD
CKD3a
ADRIAN undergoing eval for Inspire
Prostate cancer
GERD/Hobbs esophagus
Echo 10/27/2023: EF 50%, mild concentric LVH. Anterior, lateral, inferolateral, and inferior hypokinesis. Dilated left atrium with mild mitral regurgitation, mild pulmonary hypertension PAP 39 mmHg
10/27/23 LHC:
1.� Left heart catheterization with coronary and single-plane left ventriculography
2.� Stenting of bifurcating first diagonal branch with a 2.0 x 15 mm [place] stent that was implanted at nominal pressures and postdilated with a 2.0 mm noncompliant balloon
3. The LAD arises normally from the left main and runs in the anterior interventricular groove.� There is a long segment area of atherosclerosis from the proximal to mid LAD where 50-60% stenosis is noted.� The mid LAD at the origin of the first
diagonal branch is aneurysmal and the diagonal is found to be 100% occluded.� The mid to distal LAD has only minor irregularities in the LAD wraps completely around the apex.
4.CIRCUMFLEX: The circumflex is a moderate to large caliber dominant vessel.� OM1 is small.� OM 2 is a small to medium caliber vessel that bifurcates proximally and has minor irregularities.� The circumflex then continues in the AV groove where
diffuse minor luminal irregularities are noted.� The PDA is small with the distal circumflex supplying several small posterolateral branches.
5.RIGHT CORONARY: Small nondominant
10/27/2023 Portable chest x-ray: Lungs clear. No acute cardiopulmonary process.
Plan:
Late presenting lateral STEMI with initial troponin 3, peaked at 136
-tele reviewed 7 beats of NSVT in early afternoon 10/27/23 but none since. Continue Toprol
-Echo as noted above mildly reduced ejection fraction EF 50% with anterior, lateral, inferolateral and inferior hypokinesis. Was discussed with patient.
-EKG stable in sinus rhythm with T wave abnormality in lateral leads
-He is on chronic Eliquis for PAF; continue with addition of DAPT ASA/Plavix for 2 weeks then stop ASA
-Blood pressure well-controlled. Continue losartan and Toprol.
-Lipids 10/27/2023 TC 107, HDL 49, LDL 49, triglycerides 45. Continue atorvastatin, Repatha and Zetia
-Hbg A1c 7.0, was borderline 6.6% in 2020, Evaluated by DM educator. Plan is to start metformin and Jardiance 10 mg daily. Jardiance will cost $40 a month and patient is agreeable to pay.
-Cardiac rehab c/s
-Supportive post SD care. Continue to monitor 48 hours post SD
-With regards to medical management of his post SD care his creatinine is elevated at 1.8 on October 29 up from 1.4 so we will hold his metformin on Monday and hold his losartan on Monday and repeat labs on October 30. Overall he feels well
so hopefully approaching discharge on Monday
History of recurrent strokes in 2020
-Continue anticoagulation. Continue beta-maria antonia
-Patient has a Linq monitor placed 06/21/2021. There has been no documented atrial fibrillation on Linq since implant.
Obstructive sleep apnea undergoing evaluation for inspire at [place]
-Patient will notify his sleep medicine physicians at [place] about recent STEMI
-Ideally avoid interruption of dual antiplatelet therapy for at least 1 year
-Will cancel upcoming procedures; timing will be determined at outpatient follow-up
History of GERD/Hobbs's esophagus, currently asymptomatic. Follow hemoglobin on triple therapy
HPI 10/27/2023:
73-year-old gentleman with a prior history of recurring TIA/CVAs.� He is now chronically maintained on oral anticoagulation with apixaban.� He has a Linq monitor in place with no evidence of atrial fibrillation and has undergone an extensive
evaluation including JUANA with no obvious intracardiac shunting and mild to moderate aortic atheroma noted.� He has difficult to control hypertension and mixed hyperlipidemia for which she is on 80 mg of atorvastatin, ezetimibe, and Repatha.� He is
on Provigil.
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
Subjective
Date of Service: October 29, 2023
Overall feels well
Objective
Labs:
10/28/23 08:36
10/29/23 03:48
Labs
Hgb 12.6 g/dL (13.0-18.0) L 10/28/23 08:36
Hct 36.7 % (39.0-52.0) L 10/28/23 08:36
Plt Count 161 10^3/uL (130-400) 10/28/23 08:36
PT 13.1 Sec (11.4-14.6) 10/27/23 02:52
INR 0.99 10/27/23 02:52
Sodium 134 mmol/L (135-145) L 10/29/23 03:48
Potassium 4.1 mmol/L (3.5-5.1) 10/29/23 03:48
BUN 29 mg/dl (9-20) H 10/29/23 03:48
Creatinine 1.8 mg/dL (0.7-1.3) H 10/29/23 03:48
Glucose 141 mg/dl (70-99) H 10/29/23 03:48
Troponins
10/27/23 10/27/23 10/27/23
02:52 05:12 11:40
Troponin I 3.000 H* 136.000 H* D 140.000 H*
10/27/23 10/28/23
16:27 08:36
Troponin I 97.500 H* D 44.200 H*
Vital Signs and I&O:
Vital Signs
Temp Pulse Resp BP Pulse Ox
98.9 F 73 20 94/62 94
10/29/23 06:59 10/29/23 07:03 10/29/23 06:59 10/29/23 07:03 10/29/23 06:59
Vital Signs
Temp Pulse Resp BP Pulse Ox
98.9 F 73 20 94/62 94
10/29/23 06:59 10/29/23 07:03 10/29/23 06:59 10/29/23 07:03 10/29/23 06:59
Intake & Output
10/27/23 10/28/23 10/29/23 10/30/23
06:59 06:59 06:59 06:59
Intake Total 750 / 750 1200 / 1200
Output Total 600 / 600
Balance 150 / 150 1200 / 1200
Physical Exam
Physical Exam
H&T normocephalic atraumatic
JVP 6
Cor regular
No murmur
Lungs clear to auscultation bilaterally
Abdomen soft nontender positive bowel sounds
No extreme edema
Pertinent x 3
[2023-10-29] MEDS: COZAAR PO (08:48)
[2023-10-29 14:13] LABS: Glucose - Point of Care 108 mg/dl (70-99)
[2023-10-29] MEDS: NORVASC 5 MG PO (16:02)
[2023-10-29] MEDS: LIPITOR 80 MG PO (17:08)
[2023-10-29] MEDS: NOVOLOG FLEXPEN-MODERATE RESISTANCE 1 UNITS SC (17:09)
[2023-10-29 17:10] LABS: Glucose - Point of Care 179 mg/dl (70-99)
[2023-10-29 22:14] LABS: Glucose - Point of Care 153 mg/dl (70-99)
--- NOTE | 2023-10-30 00:50 | PTCARENOTE ---
Pt received at start of shift, HR SR 70s-80s. Pt in bed with and son at bedside. Pt and family questioning changes in diet in relation to new diabetes diagnosis as well as heart healthy diet. Educated pt and family on low cholesterol diet (role
of high cholesterol in [place]), reason for sodium restricted diet, and certain substitutes for diabetes diet (complex vs simple carbs). [place]y diabetes diet and carb counting packets printed and given to pt. Further reinforcement required in regards
to diabetes diet, pt and family requesting a list of foods. Pt denies any CP, SOB, or lightheadedness/dizziness at this time. Informed to notify RN if any changes, call chapman within reach.
[2023-10-30 02:39] VITALS: BP 124/66
[2023-10-30 03:14] LABS: Blood Urea Nitrogen 38 mg/dl (9-20); Calcium 8.9 mg/dl (8.4-10.2); Carbon Dioxide 26 mmol/L (22-30); Chloride 98 mmol/L (98-107); Estimated Creatinine Clearance 42 ml/min; Glucose 144 mg/dl (70-99); Sodium 133 mmol/L (135-145)
--- NOTE | 2023-10-30 07:34 | PN.DE.MGMTRT ---
Insulin Management
- -
10/27/2023: Diabetes Management Consult
73 year old male admitted on 10/27 with back pain due to lateral STEMI s/p PCI with PERRI this morning.
PMH includes: Arrhythmia (Atrial fibrillation), TIA/CVA 02/2021 & 07/2021, GERD, HTN, HLD, CKD3a, ADRIAN, Glaucoma s/p removal, prostate cancer s/p Prostatectomy, GERD/Hobbs esophagus and T2DM. Current A1C 7% (6.6% 07/2021) Cr 1.3-->1.2 today.
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 Pt states that he was told that his A1C was 6.6% and did not need any medications.
Plasma glucose is 197-200 with a FBG of 197 this morning, no accuchecks available at this time.
Discussed current A1C and glucose range, was made aware of need to start oral DM medications.
Discussed Jardiance/Farxiga and Metformin mech of action and side effects, he was amenable to regimen.
Will start Jardiance 10mg daily, 1st dose today. Start Metformin 500mg BID, 1st dose on 10/29 @ 0800
Start moderate corrective insulin and accucheks AC/HS. 1800 ada diet
Pt was provided with monitor and instructions for home glucose monitoring.
10/30/2023: Diabetes Management F/U:
Noted for RAUDEL, Cr 1.3-->1.7 today. HOLD Metformin.
start Glipizide 2.5mg BID, 1st does now. Cont Jardiance 10mg daily
discussed with pt change of oral regimen and he was amenable to plan of care.
Rec: Repeat BMP post discharge. PCP to determine when to start MFM
Diabetes History
- -
Type of Diabetes: 2
Pre-Admission Diabetes Regimen
10/30/23
02:47
Creatinine 1.7 H
Lab Results
Hemoglobin A1c 7.0 % (4.0-5.6) H 10/27/23 05:12
Insulin Pump Settings
IP Diabetes Regimen
10/29/23 10/29/23 10/29/23
14:11 17:08 22:13
Glucose
POC Glucose 108 H 179 H 153 H
10/30/23
02:47
Glucose 144 H
POC Glucose
Meal type: Breakfast
Patient Education
--- NOTE | 2023-10-30 07:37 | PTCARENOTE ---
Telemetry captured for previous shift via [employer].
[2023-10-30 08:08] VITALS: BP 110/76
[2023-10-30 08:12] LABS: Glucose - Point of Care 147 mg/dl (70-99)
[2023-10-30] MEDS: NOVOLOG FLEXPEN-MODERATE RESISTANCE SC ×2 (08:19→14:44)
--- NOTE | 2023-10-30 09:15 | PTCARENOTE ---
Patient received from shift lab technician resting comfortably in bed, AAO X 3, denies pain. NSR via cm, SaO2 @ 94% on RA. Dr. Nieves at bedside for am rounds, updated to status. Patient updated to plan of care for the day, including possible d/c home later
today, in agreement. See work list for full assessment and interventions performed.
[2023-10-30] MEDS: TOPROL XL 50 MG PO (09:18)
[2023-10-30] MEDS: ZETIA 10 MG PO (09:18)
[2023-10-30] MEDS: PROTONIX 40 MG PO (09:18)
[2023-10-30] MEDS: NORVASC 5 MG PO (09:18)
[2023-10-30] MEDS: LOW STRENGTH ASPIRIN 81 MG PO (09:18)
[2023-10-30] MEDS: PLAVIX 75 MG PO (09:18)
[2023-10-30] MEDS: JARDIANCE 10 MG PO (09:18)
[2023-10-30] MEDS: CELEXA 20 MG PO (09:19)
[2023-10-30] MEDS: GLUCOTROL 2.5 MG PO (09:19)
[2023-10-30] MEDS: WELLBUTRIN XL (24 hour extended release) 150 MG PO (09:19)
[2023-10-30] MEDS: ELIQUIS 5 MG PO (09:19)
--- NOTE | 2023-10-30 11:53 | W.PN.CARDCBS ---
Addendum entered and electronically signed by Cricket Nieves MD 10/30/23 13:32:
General: Well developed, well nourished in NAD.
Neck: Supple, no JVD, HJR, carotids +2 B/L, no bruits bilaterally.
Heart: Non displaced PMI, RRR, no murmurs, No S3, S4, no rubs.
Lungs: Clear to auscultation bilaterally, no wheeze, rhonchi, rubs bilaterally,
normal expiratory phase.
Abdomen: Normal bowel sounds, soft, non-tender, non-distended.
Extremities: No clubbing, cyanosis or edema bilaterally.
Neuro: Grossly nonfocal, awake, alert and oriented x3.I saw and examined the patient.
The QUALITY WORKER or PA's note was reviewed and I agree with the note.
Comment:
Stable cardiology status for discharge. Follow-up arranged. Discharge time greater than 30 minutes
Addendum entered and electronically signed by Kellie Mccall PA-C 10/30/23 12:41:
[id number]
Original Note:
Today's Communication / Plan
-
D/C to home today
Impression / Plan
-
PCP: Rupert Hanson MD
CDY: Kulwant Coates MD
Impression:
Presented w/ back pain 10/27/2023
Acute lateral STEMI, peak Troponin 140
post PCI first diagonal x1 PERRI 10/27/23
Residual LAD stenosis med treated
h/o TIA/CVA 02/2021, recurrent 07/2021
Linq placed 06/21/21 - No Afib seen
Chronic Eliquis OAC
HTN
HLD
RAUDEL on CKD3a
ADRIAN undergoing eval for Inspire
Prostate cancer
GERD/Hobbs esophagus
Newly diagnosed DM 2
Echo 10/27/23: EF 50%, mild concentric LVH. Anterior, lateral, inferolateral, and inferior hypokinesis. Dilated left atrium with mild mitral regurgitation, mild pulmonary hypertension PAP 39 mmHg
Plan:
-Troponin peaked at 140, but EF preserved at 50% with anterior, lateral, inferolateral, and inferior hypokinesis by echo 10/27/23.
-Patient treated with 2.0 mm Onxy to the bifurcating Diag-1 and the plan is for medical management of residual 50-60% prox-mid LAD disease also seen by cath 10/27/23. The mid LAD at the origin of the first diagonal branch is aneurysmal and the
diagonal is found to be 100% occluded.�
-Patient was taking Eliquis 5 mg BID (age 73, wt 77.7 kg and Cre 1.7) prior to admission for h/o CVA although no documented h/o atrial arrhythmia. Eliquis has been continued and he is now also ordered Plavix 75 mg daily. Outpatient dose of aspirin
81 mg daily has also been continued and the plan is for triple therapy for 2 weeks and then stop aspirin, but continue Eliquis and Plavix.
-Outpatient dose of atenolol has been changed to Toprol XL 50 mg daily.
-Patient was seen in the cardiology office 10/04/23 and he was taking HCTZ 25 mg daily and losartan 100 mg daily, same as nephrology outpatient med list at appointment 09/29/23. Current home med rec from admission also lists lisinopril 20 mg daily and
suspect this was an error and will be deleted. HCTZ has been on hold since admission. No doses of lisinopril were ever given.
-Cre peaked at 1.8 on 10/29/23, 48 hours after cath. Cre trending down to 1.7 on 10/30/23. Will recheck BMP on and if continuing to improve then can restart outpatient dose of losartan 100 mg daily.
-Outpatient dose of amlodipine was actually 5 mg daily and is listed as 10 mg daily on home med rec from admission which again is likely an error.
-LDL 49 and outpatient doses of atorvastatin 80 mg daily, Zetia 10 mg daily have been continued plus he will resume Repatha upon discharge.
-Hbg A1c 7.0, previously borderline at 6.6% in 2020, Evaluated by DM educator. Plan was to start metformin and Jardiance 10 mg daily, but due to RAUDEL metformin was never started. DM QUALITY WORKER instead has started glipizide 2.5 mg BID. Will continue with
plan for Jardiance 10 mg daily which patient has been receiving since 10/28/23. Jardiance will cost $40 a month and patient is agreeable to pay.
-PT saw patient and he has no skilled need. Cardiac rehab consulted as well.
-Patient being followed by [facility] [place] for possible Inspire placement and he will notify their office of this event. Ideally avoid interruption of dual antiplatelet therapy for at least 1 year. He should cancel upcoming procedures; timing
will be determined at outpatient follow-up
-D/C to home 10/30/23
HPI 10/27/2023:
73-year-old gentleman with a prior history of recurring TIA/CVAs.� He is now chronically maintained on oral anticoagulation with apixaban.� He has a Linq monitor in place with no evidence of atrial fibrillation and has undergone an extensive
evaluation including JUANA with no obvious intracardiac shunting and mild to moderate aortic atheroma noted.� He has difficult to control hypertension and mixed hyperlipidemia for which she is on 80 mg of atorvastatin, ezetimibe, and Repatha.� He is
on Provigil.
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
Subjective
Date of Service: October 30, 2023
He feels well and wants to go home
Objective
Labs:
10/28/23 08:36
10/30/23 02:47
Labs
Hgb 12.6 g/dL (13.0-18.0) L 10/28/23 08:36
Hct 36.7 % (39.0-52.0) L 10/28/23 08:36
Plt Count 161 10^3/uL (130-400) 10/28/23 08:36
PT 13.1 Sec (11.4-14.6) 10/27/23 02:52
INR 0.99 10/27/23 02:52
Sodium 133 mmol/L (135-145) L 10/30/23 02:47
Potassium 4.0 mmol/L (3.5-5.1) 10/30/23 02:47
BUN 38 mg/dl (9-20) H 10/30/23 02:47
Creatinine 1.7 mg/dL (0.7-1.3) H 10/30/23 02:47
Glucose 144 mg/dl (70-99) H 10/30/23 02:47
Troponins
10/27/23 10/27/23 10/28/23
11:40 16:27 08:36
Troponin I 140.000 H* 97.500 H* D 44.200 H*
Vital Signs and I&O:
Vital Signs
Temp Pulse Resp BP Pulse Ox
98.7 F 63 16 110/76 94
10/30/23 08:15 10/30/23 10:00 10/30/23 08:15 10/30/23 09:18 10/30/23 08:15
Vital Signs
Temp Pulse Resp BP Pulse Ox
98.7 F 63 16 110/76 94
10/30/23 08:15 10/30/23 10:00 10/30/23 08:15 10/30/23 09:18 10/30/23 08:15
Intake & Output
10/28/23 10/29/23 10/30/23 10/31/23
06:59 06:59 06:59 06:59
Intake Total 1200 / 1200 480 / 480 250 / 250
Balance 1200 / 1200 480 / 480 250 / 250
Physical Exam
Physical Exam
GEN: NAD. AAOx3
HEENT: EOMI, MMM
LUNGS: CTA B/L
CV: Reg
ABD: soft, BS+
EXT: No edema B/L
NEURO: Gross non-focal
SKIN: No rash
[2023-10-30 12:14] VITALS: BP 125/69
--- NOTE | 2023-10-30 12:17 | PTCARENOTE ---
VS obtained, stable. Patient resting comfortably.
--- NOTE | 2023-10-30 12:33 | W.DS.TRANS ---
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
-
Discharge Instructions:
Discharge Diagnosis/Procedures STEMI, Angioplasty with stent to Diagonal artery
, acute kidney injury
Diet Low Cholesterol
Activity As tolerated
Driving Restrictions As prior to admission
Bathing Restrictions OK to Shower
Blood Work , lab slip attached
Other Services Cardiac Rehab
Stop these medications: -STOP taking HCTZ (hydrochlorothiazide),
lisinopril and atenolol.
Instructions:
Stand-Alone Forms: DC Instructions- Cath/EP Lab
Changes to Home Medications: Yes
Discharge Medications:
DC Medications w/original date entered in [employer]
atorvastatin 80 mg tablet 80 mg PO HS High cholesterol 02/25/21
bupropion HCl 300 mg 24 hr tablet, extended release 300 mg PO DAILY Mental Health/Anxiety 02/25/21
citalopram 20 mg tablet 20 mg PO DAILY Mental Health/Anxiety 02/25/21
ezetimibe 10 mg tablet 10 mg PO HS High cholesterol 02/25/21
losartan 50 mg tablet 100 mg PO HS Blood pressure 02/25/21
modafinil 200 mg tablet 100 mg PO DAILY STIMULENT 02/25/21
bimatoprost 0.01 % eye drops (Lumigan) 1 drp BOTH EYES HS Eye condition 06/21/21
evolocumab 140 mg/mL subcutaneous syringe (Repatha Syringe) 140 mg SC Q2W High cholesterol ##0 06/21/21
apixaban 5 mg tablet (Eliquis) 5 mg PO BID Blood Clot Prevention/Tx 10/14/21
beclomethasone dipropionate 40 mcg/actuation aerosol inhaler (Qvar) 2 puff IH BIDPRN PRN chronic cough 10/14/21
diphenhydramine HCl 25 mg capsule (Banophen) 25 mg PO Q6HPRN PRN allergies 10/14/21
ergocalciferol (vitamin D2) 1,250 mcg (50,000 unit) capsule 50,000 units PO WEEKLY Supplement 10/14/21
ipratropium bromide 42 mcg (0.06 %) nasal spray 1 spray intranasal DAILYPRN PRN allergies 10/14/21
zinc gluconate 50 mg tablet 50 mg PO DAILY Supplement 10/14/21
aspirin 81 mg tablet,delayed release 81 mg PO DAILY Blood Clot Prevention/Tx 10/28/23
amlodipine 5 mg tablet 5 mg PO DAILY Blood pressure #30 tabs 10/30/23
clopidogrel 75 mg tablet 75 mg PO DAILY Blood Clot Prevention/Tx #30 tabs 10/30/23
empagliflozin 10 mg tablet (Jardiance) 10 mg PO DAILY Heart disease/condition and diabetes #30 tabs 10/30/23
glipizide 5 mg tablet 2.5 mg PO BID@0800,1700 Diabetes #60 tabs 10/30/23
metoprolol succinate 50 mg tablet,extended release 24 hr 50 mg PO DAILY Heart disease/condition #30 tabs 10/30/23
pantoprazole 40 mg tablet,delayed release 40 mg PO DAILY GI protection #30 tabs 10/30/23
Home Medication Changes
HCTZ, atenolol and lisinopril stopped
New to Plavix.
New to Protonix
New to Toprol XL
New to Jardiance and Glipizide
Pending Results: No
[2023-10-30 14:44] LABS: Glucose - Point of Care 87 mg/dl (70-99)
[2023-10-30 15:35] VITALS: BP 111/66
[2023-10-30 16:45] LABS: Glucose - Point of Care 175 mg/dl (70-99)
--- NOTE | 2023-10-30 18:26 | PTCARENOTE ---
Discharge instructions thoroughly reviewed w/patient, spouse, and son - all questions answered. PIV x 2 removed. Patient and all belongings transported to waiting vehicle for d/c home.
== END 2023-10-30 18:45 | disposition home or self-care (01) | DRG 322 ==
LOC: IVU 04:34
PROVIDERS: Physician Assistant Medical; ADMITTING PHYSICIAN Internal Medicine Interventional Cardiology; EMERGENCY PHYSICIAN Student in an Organized Health Care Education/Training Program
PROC: B2111ZZ Fluoroscopy of Multiple Coronary Arteries using Low Osmolar Contrast (ICD-10-PCS; 2023-10-27)
PROC: 02703D6 Dilation of Coronary Artery, One Artery, Bifurcation, with Intraluminal Device, Percutaneous Approach (ICD-10-PCS; 2023-10-27)
PROC: 4A023N7 Measurement of Cardiac Sampling and Pressure, Left Heart, Percutaneous Approach (ICD-10-PCS; 2023-10-27)
PROC: B2151ZZ Fluoroscopy of Left Heart using Low Osmolar Contrast (ICD-10-PCS; 2023-10-27)
DX: I21.09 ST elevation (STEMI) myocardial infarction involving other coronary artery of anterior wall (principal); N17.9 Acute kidney failure, unspecified; Z79.01 Long term (current) use of anticoagulants; M54.9 Dorsalgia, unspecified; N18.31 Chronic kidney disease, stage 3a; I12.9 Hypertensive chronic kidney disease with stage 1 through stage 4 chronic kidney disease, or unspecified chronic kidney disease; E78.2 Mixed hyperlipidemia; F32.A Depression, unspecified; F41.9 Anxiety disorder, unspecified; K21.9 Gastro-esophageal reflux disease without esophagitis; K22.70 Barrett's esophagus without dysplasia; I25.10 Atherosclerotic heart disease of native coronary artery without angina pectoris; E11.22 Type 2 diabetes mellitus with diabetic chronic kidney disease; G47.33 Obstructive sleep apnea (adult) (pediatric); C61 Malignant neoplasm of prostate
CPT/HCPCS: 71045; 80048; 80053; 80061; 82962; 83036; 84484; 85025; 85027; 85347; 85610; 93005; 93306; 93458; 99291; C1725; C1769; C1874; C1887; C1894; C9606; Q9967

== ENCOUNTER 2023-12-21 16:18 | Outpatient (RCR) | payer MEDICARE, BC, SELFPAY ==
[2023-12-21 14:43] LABS: Glucose - Point of Care 123 mg/dl (70-99)
[2023-12-21 15:16] LABS: Glucose - Point of Care 91 mg/dl (70-99)
== END 2023-12-21 23:59 | disposition home or self-care (01) ==
LOC: CRHB 16:18
PROVIDERS: ATTENDING PHYSICIAN Internal Medicine Cardiovascular Disease
DX: I21.01 ST elevation (STEMI) myocardial infarction involving left main coronary artery (principal); Z95.5 Presence of coronary angioplasty implant and graft; I10 Essential (primary) hypertension
CPT/HCPCS: 82962; G0422

== ENCOUNTER 2024-01-08 11:23 | Outpatient (RCR) | payer MEDICARE, BC, SELFPAY ==
[2023-12-25 08:16] LABS: Glucose - Point of Care 190 mg/dl (70-99)
[2023-12-25 09:11] LABS: Glucose - Point of Care 122 mg/dl (70-99)
[2023-12-27 10:56] LABS: Glucose - Point of Care 171 mg/dl (70-99)
[2023-12-27 11:43] LABS: Glucose - Point of Care 109 mg/dl (70-99)
[2024-01-03 11:12] LABS: Glucose - Point of Care 122 mg/dl (70-99)
[2024-01-03 12:02] LABS: Glucose - Point of Care 109 mg/dl (70-99)
[2024-01-05 11:09] LABS: Glucose - Point of Care 119 mg/dl (70-99)
[2024-01-05 12:12] LABS: Glucose - Point of Care 102 mg/dl (70-99)
[2024-01-08 11:21] LABS: Glucose - Point of Care 109 mg/dl (70-99)
[2024-01-08 12:17] LABS: Glucose - Point of Care 96 mg/dl (70-99)
== END 2024-01-08 23:59 | disposition home or self-care (01) ==
LOC: CRHB 11:23
PROVIDERS: ATTENDING PHYSICIAN Internal Medicine Cardiovascular Disease
DX: I21.01 ST elevation (STEMI) myocardial infarction involving left main coronary artery (principal); Z95.5 Presence of coronary angioplasty implant and graft
CPT/HCPCS: 82962; G0422; G0423

== ENCOUNTER 2024-02-07 11:11 | Outpatient (RCR) | payer MEDICARE, BC, SELFPAY ==
[2024-01-29 10:59] LABS: Glucose - Point of Care 125 mg/dl (70-99)
== END 2024-02-07 23:59 | disposition home or self-care (01) ==
LOC: CRHB 11:11
PROVIDERS: ATTENDING PHYSICIAN Internal Medicine Cardiovascular Disease
DX: I21.01 ST elevation (STEMI) myocardial infarction involving left main coronary artery (principal); Z95.5 Presence of coronary angioplasty implant and graft
CPT/HCPCS: 82962; G0422; G0423

== ENCOUNTER 2024-03-07 14:32 | Emergency (ER) | payer MEDICARE, BC, SELFPAY ==
[2024-03-07 14:40] VITALS: BP 134/70
[2024-03-07 15:44] VITALS: BP 123/74
[2024-03-07 15:55] VITALS: BMI 24.3
[2024-03-07 16:00] VITALS: BP 111/67
[2024-03-07] MEDS: NSS 250 IV (16:02)
[2024-03-07 16:15] LABS: % Basophils 0.3 % (0-2); % Eosinophils 0.3 % (0-6); % Immature Granulocytes 0.2 % (0-0.5); % Lymphocytes 21.2 % (20.5-51.1); % Monocytes 8.8 % (1.7-9.3); % Neutrophils 69.2 % (42.2-75.2); Absolute Lymphocytes 1.4 10^3/uL (1.2-3.4); Absolute Monocytes 0.6 10^3/uL (0.1-0.6); Absolute Neutrophils 4.5 10^3/uL (1.4-6.5); Hematocrit 41.5 % (39.0-52.0); Hemoglobin 13.9 g/dL (13.0-18.0); Mean Corp Hgb Conc. 33.5 g/dL (33.0-37.0); Mean Corpuscular Hgb 30.4 pg (27.0-31.0); Mean Corpuscular Volume 90.8 fL (80.0-94.0); Mean Platelet Volume 10.8 fL (7.4-10.4); Nucleated Red Blood Cells % 0 % (-); Platelet Count 156 10^3/uL (130-400); Red Blood Cell Count 4.57 10^6/uL (4.70-6.10); Red Cell Dist. Width 12.4 % (11.5-14.5); White Blood Cell Count 6.5 10^3/uL (4.8-10.8)
--- NOTE | 2024-03-07 16:20 | ED.GENMED ---
History of Present Illness
General
Chief Complaint: Heart Rate Problem
Source: patient
Exam Limitations: none
Time Seen by Provider: 03/07/24 15:38
Nursing documentation reviewed up to this point in time: agreed with
Travel History
Have you had any contact with someone who has COVID-19?: No
Do you have any symptoms of coronavirus? Fever > 100 degrees, chills, cough, shortness of breath, sore throat, loss of taste or smell, muscle aches, or headache?: No
History of Present Illness
History of Present Illness:
73 y/o M with h/o CVA/TIA on asa and plavix, cad with stent, linq implanted; followed by cardiology dr. allen
here with feeling of palpitations described as irregular beats since am
he has no pain, lightheadedness, sob, swelling in legs, weakness, syncope, fever, vomiting
has been drinking extra caffeine the past few days
he has a linq because of his previous strokes - never identifying any dysrhythmia though it was documented ne the had JUANA with cardioversion previously due to A fib
regardless pt is anticoagulated
Past History
Past History
ED Past Medical History: Arrthythmia (Atrial fibrillation), CVA, GERD, HTN, Hypercholesterolemia and Other (Obstructive sleep apnea, glaucoma, prostate cancer)
ED Past Surgical History: None, Urological (Prostatectomy October 2013) and Other (Cataract removal with lens implant 2019)
Social History
Tobacco: Non-smoker
Alcohol: None
Drug: None
Personal:
Living: with family
Employment: Retired
Family History
Family History: Other
Review of Systems
Review of Systems
Allergies reviewed?: Yes
All Other Systems: Not applicable
Phy Exam
Physical Exam
Physical Exam:
GENERAL: Alert , in no apparent distress
EYE: pupils equal and reactive
NECK: Supple
ENT: o/p clr, mmm.
CARDIAC: irregular rhythm, rate in the 50s to 60s, no appreciated murmur
LUNGS: Clear breath sounds bilaterally, no acute respiratory distress, no wheezes/rales/rhonchi
ABDOMEN: Soft, without focal tenderness, no r/g, no cvat, normal bowel sounds
NEUROLOGICAL: Alert and oriented, no focal neuro deficits
SKIN: Warm and dry, skin intact.
MUSCULOSKELETAL: No edema, well perfused. neg jackelyn's sign
PSYCH: Normal and appropriate interaction.
Course
Orders/Labs/Results
Orders:
Orders
03/07/24 14:35
EKG [Electrocardiogram (*1)] Urgent
Reason for Study: Palpitations
EKG- Treatment ONCE
03/07/24 15:49
0.9% Sodium Chloride 250 ml [Nss] 250 ml IV BOLUS
03/07/24 15:53
Complete Blood Count/With Diff Urgent
Comprehensive Metabolic Panel Urgent
Magnesium Urgent
TSH Reflex To Free T4 Urgent
Abnormal Lab Results
03/07/24
15:53
RBC 4.57 L 10^6/uL
(4.70-6.10)
MPV 10.8 H fL
(7.4-10.4)
BUN 33 H mg/dl
(9-20)
Creatinine 1.6 H mg/dL
(0.7-1.3)
Glucose 106 H mg/dl
(70-99)
03/07/24 15:53
03/07/24 15:53
Vital Signs
Initial and Last Documented VS:
Initial Vital Signs
Temp Pulse Resp BP Pulse Ox
98.7 F 68 18 134/70 97
03/07/24 14:40 03/07/24 14:40 03/07/24 14:40 03/07/24 14:40 03/07/24 14:40
Last Documented Vital Signs
Temp Pulse Resp BP Pulse Ox
98.7 F 58 16 129/70 96
03/07/24 14:40 03/07/24 17:59 03/07/24 17:59 03/07/24 18:00 03/07/24 17:59
MDM/Problems Addressed
Differential Diagnosis Includes:
palpitatinos, afib, pacs, pvcs, thyroid
MDM/Problems Addressed:
73 y/o M with h/o ? afib though not identified that i can see
implanted linq after having several strokes
anticoagulated
here with palpitations
iregular, not fast, extra beats
no cp, sob
has had extra coffee the past few days for unknown reason
ekg and moitor show some occ PACs, sinus otherwise
w/u here stable, ckd,unchanged
tsh and lytes normal
d/w dr. allen
ok to d/c
*Critical Care Note
Total Time (30-74mins, 75-104mins- exclusive of procedures): Not Applicable
ED Attending Note
-
Portions of this chart may have been created with voice recognition software.� Occasional wrong word or��sound alike� substitutions may have occurred due to the inherent limitations of voice recognition software.
Discharge Plan
Departure
Patient Disposition: Home (Routine Discharge)
Date of Disposition: 03/07/24
Time of Disposition: 17:42
Patient with high blood pressure during this ER visit?: No
Condition: Fair
Covid-19: Not Applicable
Discharge Problem:
Heart palpitations, PAC (premature atrial contraction)
Instructions: Palpitations (DC)
Prescriptions:
No Action
losartan 50 MG tablet
100 mg PO HS
Hold Instructions: Resume on 11/03/23. Resume pending results of blood work.
atorvastatin 80 MG tablet
80 mg PO HS
citalopram 20 MG tablet
20 mg PO DAILY
modafinil 200 MG tablet
100 mg PO DAILY
bupropion HCl 300 MG tablet extended release 24 hr
300 mg PO DAILY
ezetimibe 10 MG tablet
10 mg PO HS
Lumigan 1 DROP drops
1 drp BOTH EYES HS
Repatha Syringe 140 MG/ML syringe
140 mg SC Q2W Qty: 0
diphenhydramine HCl [Banophen] 25 MG capsule
25 mg PO Q6HPRN PRN (Reason: allergies)
Patient Comments:
patients states its been weeks since last taken
zinc gluconate 50 MG tablet
50 mg PO DAILY
ergocalciferol (vitamin D2) 50,000 UNITS capsule
50,000 units PO WEEKLY
ipratropium bromide 1 SPRAY spray,non-aerosol
1 spray intranasal DAILYPRN PRN (Reason: allergies)
Patient Comments:
patient states its been weeks since last taken
Qvar 8.7 GM aerosol
2 puff IH BIDPRN PRN (Reason: chronic cough)
Patient Comments:
patient states its been a long time since last taken
Eliquis 5 MG tablet
5 mg PO BID
aspirin 81 MG tablet,delayed release (DR/EC)
81 mg PO DAILY
glipizide 5 mg Tablet
2.5 mg PO BID@0800,1700 Qty: 60 6RF
Jardiance 10 mg Tablet
10 mg PO DAILY Qty: 30 11RF
metoprolol succinate 50 mg Tablet Extended Release 24 Hr
50 mg PO DAILY Qty: 30 11RF
amlodipine 5 mg Tablet
5 mg PO DAILY Qty: 30 0RF
pantoprazole 40 mg Tablet,Delayed Release (Dr/Ec)
40 mg PO DAILY Qty: 30 11RF
clopidogrel 75 MG tablet
75 mg PO DAILY Qty: 30 11RF
Referrals:
Rupert Santoyo MD [Family Provider] -
Crispin Coates MD [Active] - Follow up in 5-7 days
Activity Restrictions/Additional Instructions:
Your palpitations are probably due to PACs which are premature atrial contractions and are not worrisome. You are not in atrial fibrillation. You should avoid some caffeine over the next couple days and stay hydrated. Follow-up with Dr. Coates
in the office. Return to the ER for worsening symptoms like fast heartbeat, passing out, chest pain, shortness of breath or any concerns
Interventions
Interventions:
*Risk Screen - Suicide Last Done: 03/07/24 14:42
*General Assessment Last Done: 03/07/24 14:42
*Neglect/Abuse Screening Last Done: 03/07/24 14:42
ED- Fall Risk Assessment Last Done: 03/07/24 18:07
*ED COVID-19 Vaccine History Last Done: 03/07/24 15:56
*Nursing Disposition Last Done: 03/07/24 18:07
ED- Cardiac Assessment Last Done: 03/07/24 15:56
ED- Pulmonary Assessment Last Done: 03/07/24 15:56
Discharge Date and Time
Discharge Date/Time: 03/07/24 18:08
Print Language: EMIRATI
[2024-03-07 16:27] LABS: ALT (SGPT) 17 U/L (0-50); AST (SGOT) 19 U/L (17-59); Albumin 4.3 g/dl (3.5-5.0); Alkaline Phosphatase 102 U/L (38-126); Blood Urea Nitrogen 33 mg/dl (9-20); Calcium 9.4 mg/dl (8.4-10.2); Carbon Dioxide 26 mmol/L (22-30); Chloride 105 mmol/L (98-107); Estimated Creatinine Clearance 44 ml/min; Glucose 106 mg/dl (70-99); Magnesium 1.8 mg/dl (1.6-2.3); Potassium 4.5 mmol/L (3.5-5.1); Sodium 140 mmol/L (135-145); Total Bilirubin 0.6 mg/dl (0.2-1.3); Total Protein 6.9 g/dl (6.3-8.2)
[2024-03-07 16:57] LABS: TSH Reflex To Free T4 1.53 uIU/ml (0.47-4.68)
[2024-03-07 17:00] VITALS: BP 115/66
[2024-03-07 18:00] VITALS: BP 129/70
== END 2024-03-07 18:08 | disposition home or self-care (01) ==
LOC: EMR 14:32
PROVIDERS: Physician Assistant; EMERGENCY PHYSICIAN Student in an Organized Health Care Education/Training Program; FAMILY PHYSICIAN Family Medicine
DX: I49.1 Atrial premature depolarization (principal); R00.2 Palpitations; I48.91 Unspecified atrial fibrillation; I10 Essential (primary) hypertension; E78.00 Pure hypercholesterolemia, unspecified; K21.9 Gastro-esophageal reflux disease without esophagitis; G47.33 Obstructive sleep apnea (adult) (pediatric); H40.9 Unspecified glaucoma; M19.90 Unspecified osteoarthritis, unspecified site; I25.2 Old myocardial infarction; Z95.5 Presence of coronary angioplasty implant and graft; Z85.46 Personal history of malignant neoplasm of prostate; Z86.73 Personal history of transient ischemic attack (TIA), and cerebral infarction without residual deficits; Z90.79 Acquired absence of other genital organ(s); Z79.01 Long term (current) use of anticoagulants; Z91.018 Allergy to other foods; Z91.048 Other nonmedicinal substance allergy status
CPT/HCPCS: 99284; 80053; 83735; 84443; 85025; 93005

== ENCOUNTER 2024-03-15 11:33 | Outpatient (RCR) | payer MEDICARE, BC, SELFPAY | END 2024-03-15 23:59 | disposition home or self-care (01) | LOC: CRHB 11:33 | PROVIDERS: ATTENDING PHYSICIAN Internal Medicine Cardiovascular Disease | DX: I21.01 ST elevation (STEMI) myocardial infarction involving left main coronary artery (principal); I25.10 Atherosclerotic heart disease of native coronary artery without angina pectoris (principal); Z95.5 Presence of coronary angioplasty implant and graft; I25.2 Old myocardial infarction | CPT/HCPCS: G0422; G0423 ==

== ENCOUNTER 2024-11-23 16:38 | Emergency (ER) | payer MEDICARE, BC, SELFPAY ==
[2024-11-23 16:45] VITALS: BP 139/78
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
[2024-11-23] MEDS: KEFLEX 500 MG PO (19:10)
[2024-11-23] MEDS: ADACEL 0.5 ML IM (19:10)
== END 2024-11-23 19:46 | disposition home or self-care (01) ==
LOC: EMR 16:38
PROVIDERS: EMERGENCY PHYSICIAN Student in an Organized Health Care Education/Training Program
DX: S61.012A Laceration without foreign body of left thumb without damage to nail, initial encounter (principal); W45.8XXA Other foreign body or object entering through skin, initial encounter; Z23 Encounter for immunization; I48.91 Unspecified atrial fibrillation; K21.9 Gastro-esophageal reflux disease without esophagitis; I10 Essential (primary) hypertension; E78.00 Pure hypercholesterolemia, unspecified; G47.33 Obstructive sleep apnea (adult) (pediatric); Z79.01 Long term (current) use of anticoagulants; Z85.46 Personal history of malignant neoplasm of prostate; Z86.73 Personal history of transient ischemic attack (TIA), and cerebral infarction without residual deficits; Z90.79 Acquired absence of other genital organ(s)
CPT/HCPCS: 99282; 12001; 90471; 90715

== ENCOUNTER → 2025-07-30 08:32 | Outpatient (REF) | payer MEDICARE, SELFPAY | LOC: HWRCS 08:32 | PROVIDERS: ATTENDING PHYSICIAN Internal Medicine Cardiovascular Disease; FAMILY PHYSICIAN Family Medicine | DX: I25.118 Atherosclerotic heart disease of native coronary artery with other forms of angina pectoris (principal) | CPT/HCPCS: 78452; 93017; A9500; J2785 ==

== ENCOUNTER → 2025-08-05 12:24 | Outpatient (REF) | payer MEDICARE, BC, SELFPAY ==
[2025-08-05 13:20] LABS: Hematocrit 42.7 % (39.0-52.0); Hemoglobin 14.4 g/dL (13.0-18.0); Mean Corp Hgb Conc. 33.7 g/dL (33.0-37.0); Mean Corpuscular Volume 91.4 fL (80.0-94.0); Platelet Count 175 10^3/uL (130-400); Red Cell Dist. Width 12.8 % (11.5-14.5)
[2025-08-05 13:30] LABS: INR 1.11; PT 14.6 Sec (11.4-14.6)
[2025-08-05 13:31] LABS: APTT 28.6 Sec (23.4-35.0)
[2025-08-05 14:03] LABS: ALT (SGPT) 27 U/L (0-50); AST (SGOT) 19 U/L (17-59); Albumin 4.5 g/dl (3.5-5.0); Alkaline Phosphatase 143 U/L (38-126); Blood Urea Nitrogen 19 mg/dl (9-20); Calcium 9.4 mg/dl (8.4-10.2); Carbon Dioxide 29 mmol/L (22-30); Chloride 96 mmol/L (98-107); Glucose 152 mg/dl (70-99); Potassium 4.0 mmol/L (3.5-5.1); Sodium 134 mmol/L (135-145); Total Protein 6.8 g/dl (6.3-8.2); eGFR > 60.00
== END ==
LOC: REG 12:24
PROVIDERS: ATTENDING PHYSICIAN Otolaryngology Facial Plastic Surgery; FAMILY PHYSICIAN Family Medicine
DX: G47.33 Obstructive sleep apnea (adult) (pediatric) (principal); Z01.812 Encounter for preprocedural laboratory examination; I21.3 ST elevation (STEMI) myocardial infarction of unspecified site
CPT/HCPCS: 36415; 80053; 85027; 85610; 85730

== ENCOUNTER 2025-08-27 16:27 | Emergency (ER) | payer MEDICARE, BC, SELFPAY ==
[2025-08-27 16:29] VITALS: BP 156/85
[2025-08-27 20:51] VITALS: BMI 24.6
--- NOTE | 2025-08-27 20:57 | ED.GENMED ---
History of Present Illness
General
Chief Complaint: Crisis Evaluation
Time Seen by Provider: 08/27/25 20:17
History of Present Illness
History of Present Illness:
75-year-old male presents to the emergency department by Police for mental health evaluation. He states that he cares for his medically frail spouse and frequently lets out his frustrations with inappropriate statements. He apparently indicated to
his that he wanted to kill himself and thus she called 911. On arrival he states that he has no suicidal intent, states sometimes my emotions get the better of me'. He denies any homicidal ideation. Denies illicit substance use.
Past History
Past History
ED Past Medical History: Arrthythmia (Atrial fibrillation), CVA, GERD, HTN, Hypercholesterolemia and Other (Obstructive sleep apnea, glaucoma, prostate cancer)
ED Past Surgical History: None, Urological (Prostatectomy October 2013) and Other (Cataract removal with lens implant 2019)
Social History
Tobacco: Non-smoker
Alcohol: None
Drug: None
Personal:
Living: with family
Employment: Retired
Family History
Family History: Other
Review of Systems
Review of Systems
Allergies reviewed?: Yes
All Other Systems: ROS reviewed and negative except as documented in HPI and ROS
Phy Exam
Physical Exam
Physical Exam:
GEN: Well appearing, NAD, WDWN
HEENT: Oral mucosa moist, no scleral icterus
Cardiac: Regular rate
Lung: No respiratory distress, no tachypnea
MSK: No gross deformity or injuries
Skin: Good color, no pallor or jaundice, no rashes
Neuro: AO x3, moves all extremities freely
Psych: Calm, cooperative
Course
Orders/Labs/Results
Orders:
Orders
08/27/25 16:33
Crisis Consult Urgent
Reason for Consult: depression
Vital Signs
Initial and Last Documented VS:
Initial Vital Signs
Temp Pulse Resp BP Pulse Ox
98.4 F 90 18 156/85 99
08/27/25 16:29 08/27/25 16:29 08/27/25 16:29 08/27/25 16:29 08/27/25 16:29
Last Documented Vital Signs
Temp Pulse Resp BP Pulse Ox
98.4 F 90 18 156/85 99
08/27/25 16:29 08/27/25 16:29 08/27/25 16:29 08/27/25 16:29 08/27/25 20:57
MDM/Problems Addressed
MDM/Problems Addressed:
Patient seen in conjunction with crisis, no safety concerns at this time. Has outpatient resources through [facility]. Suitable for discharge home
*Pulse Oximetry
SaO2: 99
Oxygen Mode of Delivery: Room air
Patient hypoxic: no
*Critical Care Note
Total Time (30-74mins, 75-104mins- exclusive of procedures): Not Applicable
ED Attending Note
-
Portions of this chart may have been created with voice recognition software.� Occasional wrong word or��sound alike� substitutions may have occurred due to the inherent limitations of voice recognition software.
Discharge Plan
Departure
Patient Disposition: Home (Routine Discharge)
Date of Disposition: 08/27/25
Time of Disposition: 20:57
Patient with high blood pressure during this ER visit?: Yes
Discharge Problem:
Stressful life event affecting family
Instructions: Depression, Adult (DC)
Prescriptions:
No Action
losartan 50 MG tablet
100 mg PO HS
atorvastatin 80 MG tablet
80 mg PO HS
citalopram 20 MG tablet
20 mg PO DAILY
modafinil 200 MG tablet
100 mg PO DAILY
bupropion HCl 300 MG tablet extended release 24 hr
300 mg PO DAILY
ezetimibe 10 MG tablet
10 mg PO HS
Lumigan 1 DROP drops
1 drp BOTH EYES HS
Repatha Syringe 140 MG/ML syringe
140 mg SC Q2W Qty: 0
diphenhydramine HCl [Banophen] 25 MG capsule
25 mg PO Q6HPRN PRN (Reason: allergies)
Patient Comments:
patients states its been weeks since last taken
zinc gluconate 50 MG tablet
50 mg PO DAILY
ergocalciferol (vitamin D2) 50,000 UNITS capsule
50,000 units PO WEEKLY
ipratropium bromide 1 SPRAY spray,non-aerosol
1 spray intranasal DAILYPRN PRN (Reason: allergies)
Patient Comments:
patient states its been weeks since last taken
Qvar 8.7 GM aerosol
2 puff IH BIDPRN PRN (Reason: chronic cough)
Patient Comments:
patient states its been a long time since last taken
Eliquis 5 MG tablet
5 mg PO BID
aspirin 81 MG tablet,delayed release (DR/EC)
81 mg PO DAILY
glipizide 5 mg Tablet
2.5 mg PO BID@0800,1700 Qty: 60 6RF
Jardiance 10 mg Tablet
10 mg PO DAILY Qty: 30 11RF
metoprolol succinate 50 mg Tablet Extended Release 24 Hr
50 mg PO DAILY Qty: 30 11RF
amlodipine 5 mg Tablet
5 mg PO DAILY Qty: 30 0RF
pantoprazole 40 mg Tablet,Delayed Release (Dr/Ec)
40 mg PO DAILY Qty: 30 11RF
clopidogrel 75 MG tablet
75 mg PO DAILY Qty: 30 11RF
cephalexin 500 mg capsule
500 mg PO TID 3 Days Qty: 9 0RF
Referrals:
Rupert Santoyo MD [Family Provider, Family Practice]
Interventions
Interventions:
*Risk Screen - Suicide Last Done: 08/27/25 16:28
*General Assessment Last Done: 08/27/25 20:52
*Neglect/Abuse Screening Last Done: 08/27/25 20:52
*ED COVID-19 Vaccine History Last Done: 08/27/25 20:52
*ED Influenza Vaccine History Last Done: 08/27/25 20:52
[facility] Fall Risk Assessment Tool Last Done: 08/27/25 20:52
*Nursing Disposition Last Done: 08/27/25 21:01
ED-Psychological Assessment Last Done: 08/27/25 20:52
Discharge Date and Time
Discharge Date/Time: 08/27/25 21:03
Print Language: SLOVENIAN
== END 2025-08-27 21:03 | disposition home or self-care (01) ==
LOC: EMR 16:27
PROVIDERS: EMERGENCY PHYSICIAN Emergency Medicine; FAMILY PHYSICIAN Family Medicine
DX: F32.A Depression, unspecified (principal); E78.00 Pure hypercholesterolemia, unspecified; G47.33 Obstructive sleep apnea (adult) (pediatric); I10 Essential (primary) hypertension; I48.91 Unspecified atrial fibrillation; Z86.73 Personal history of transient ischemic attack (TIA), and cerebral infarction without residual deficits
CPT/HCPCS: 99283